=== PATIENT | female | born 1965 | race Caucasian/White ===

== ENCOUNTER 2023-12-29 21:00 | Inpatient (IN) | payer MEDICARE, SELFPAY ==
[2023-12-29 21:01] VITALS: BP 134/93; PULSE 107; RESP 19; TEMP 36; O2SAT 99
[2023-12-29 21:03] VITALS: BMI 34.7
[2023-12-29 22:07] LABS: Absolute Lymphocyte Count 2.38 X10^3/uL (0.83-4.51); Absolute Neutrophil Count 4.6 X10^3/uL (2.0-7.7); Basophil# 0.04 X10^3/uL; Basophil% 0.4 % (0-1); Eosinophil# 0.23 X10^3/uL; Eosinophils% 2.6 % (0-5); Hematocrit 45.2 % (37-47); Hemoglobin 15.8 g/dL (12.0-15.0); Lymphocyte # 2.38 X10^3/ul (0.83-4.51); Lymphocyte % 26.7 % (19-41); Mean Corpuscular Hgb 30.3 pg (27.0-32.0); Mean Corpuscular Volume 86.6 fL (81-99); Mean Platelet Vol. 10.9 fl (6.2-12.0); Monocyte# 1.62 X10^3/uL; Monocyte% 18.2 % (0-10); NRBC Flagged by Analyzer 0 % (0-5); Neutrophil # 4.59 X10^3/uL (2.7-7.7); Neutrophil % 51.4 % (47-70); POSITIVE DIFFERENTIAL YES; POSITIVE MORPHOLOGY YES; Platelet Count 286 K/mm3 (150-450); RBC Distribution Width CV 12.3 % (11.6-14.6); RBC Distribution Width SD 38.6 fl (35.1-43.9); Red Blood Count 5.22 M/mm3 (4.2-5.4); White Blood Count 8.9 K/mm3 (4.4-11.0)
[2023-12-29] MEDS: 0.9% Normal Saline (1000mL) 1,000 ML 999 ML IV (22:22)
[2023-12-29] MEDS: Ondansetron 4 MG/2 ML Vial IV (22:22)
[2023-12-29 22:28] LABS: Magnesium 1.5 mg/dL (1.6-2.6)
[2023-12-29 22:30] LABS: ALB/GLOB Ratio 0.9 RATIO (0.9-2.4); AST(SGOT) 11 U/L (15-37); Alanine Aminotransfer ALT/SGPT 17 U/L (13-56); Albumin, Serum 3.7 g/dL (3.2-5.0); Alkaline Phosphatase 87 U/L (45-117); Anion Gap 10 (5-15); BUN 10 mg/dL (7-18); BUN/Creat Ratio 8.3 RATIO (10-20); Calcium,Total 9.1 mg/dL (8.5-10.1); Chloride 101 mmol/L (98-107); Creatinine, Serum 1.21 mg/dL (0.55-1.02); EST Glomerular Filtration Rate 48 mL/min (>60); Est Glom Filt Rate - Afr Amer 58 mL/min (>60); Globulin 4.1 g/dL (2.2-4.2); Glucose 146 mg/dL (74-106); Lipase < 10 U/L (13-75); Potassium 2.3 mmol/L (3.5-5.1); Protein, Total 7.8 g/dL (6.4-8.2); Sodium Level 135 mmol/L (136-145)
[2023-12-29 22:31] LABS: Differential Indicated SCAN CRITERIA MET
--- NOTE | 2023-12-29 22:40 | EKG12_ITS ---
Test Reason : DYSRHYTHMIA Blood Pressure : / mmHG Vent. Rate : 095 BPM Atrial Rate : 095 BPM P-R Int : 152 ms QRS Dur : 078 ms QT Int : 428 ms P-R-T Axes : 051 -27 068 degrees QTc Int : 537 ms Normal sinus rhythm Nonspecific ST abnormality Prolonged QT Abnormal ECG Confirmed by Damon Pham ([id number]), society editor JOVI KIRKLAND ([id number]) on 12/30/2023 7:39:02 AM Referred By: Confirmed By:Damon Pham
[2023-12-29 22:51] LABS: Anisocytosis RARE; Atypical Lymphocyte 1+ %; Platelet Estimate ADEQUATE (ADEQ); Red Cell Morphology NORM C+C NORMAL (NORM C&C)
[2023-12-29 23:00] VITALS: BP 147/82; PULSE 92; RESP 21; O2SAT 96
[2023-12-29] MEDS: Potassium Chloride Oral Tablet 20 MEQ 40 MEQ PO (23:44)
[2023-12-29] MEDS: Magnesium Sulfate 2 GM in Dextrose 5%-Water (100mL Bag) 100 ML IV (23:45)
[2023-12-29] MEDS: Potassium Chloride 10mEq/100mL 10 MEQ/100 ML IV.SOLN. 100 MEQ IV BOLUS (23:49)
--- NOTE | 2023-12-29 23:52 | EX.ED.DYSGE1 ---
HPI History of Present Illness Chief Complaint: Nausea/Vomiting/Diarrhea Informant: patient and family Narrative Narrative: Patient is a 58-year-old female with past medical history of hypothyroidism and lupus who is on Plaquenil. She states that she has been under a great deal of stress recently as her had cancer and recently passed. She states that over the past 3 to 4 weeks she has been having difficulty keeping any food or fluid or medication down and is also been having recurrent bouts of diarrhea. She describes the diarrhea as watery but denies any recent travel antibiotic use exposure to livestock or camping. She also denies any history of intestinal disorders such as ulcerative colitis Crohn's disease or IBS. She states that she is just been feeling rundown tired and fatigued and has symptoms or not resolving she presents for evaluation [facility] Medical History (Updated 12/30/23 @ 01:[address] Mery Etienne DO) History of retinal detachment Lupus Rheumatoid arthritis Depression Anxiety Hypothyroidism Chronic pain Kidney stones GERD (gastroesophageal reflux disease) Heart murmur Home Medications ?Medication ?Instructions ?Recorded ?Last Taken ?Type celecoxib 200 mg capsule 200 mg PO Q24H 12/29/23 12/22/23 History hydroxychloroquine 200 mg tablet 200 mg PO BID 12/29/23 Unknown History levothyroxine 150 mcg tablet 150 mcg PO DAILY thyroid 12/29/23 Unknown History lorazepam 1 mg tablet 2 mg PO QHS PRN sleep 12/29/23 Unknown History cyanocobalamin (vitamin B-12) 1,000 mcg IM QWEEK 12/30/23 Unknown History 1,000 mcg/mL injection solution dextroamphetamine-amphetamine 20 2 tab PO DAILY 12/30/23 12/15/23 History mg tablet duloxetine 30 mg capsule,delayed 30 mg PO DAILY 12/30/23 Unknown History release duloxetine 60 mg capsule,delayed 60 mg PO DAILY 12/30/23 Unknown History release gabapentin 300 mg capsule 300 mg PO QHS nerve pain 12/30/23 Unknown History omeprazole 40 mg capsule,delayed 40 mg PO DAILY gerd 12/30/23 Unknown History release Allergy/AdvReac Type Severity Reaction Status Date / Time Sulfa (Sulfonamide AdvReac Mild NEEDS Verified 12/29/23 21:03 Antibiotics) (sulfa drugs) FOLLOW-UP Family History (Updated 12/30/23 @ 01:[address] Mery Etienne DO) Other CVA (cerebral vascular accident) Cancer Hypertension Thyroid disorder Surgical History (Updated 12/30/23 @ 01:[address] Mery Etienne DO) H/O vascular surgery H/O foot surgery H/O: hysterectomy History of facelift History of carpal tunnel surgery History of gastric bypass Social History (Updated 12/30/23 @ 01:[address] Mery Etienne DO) household members: none housing: house Smoking Status: Never smoker alcohol intake: never substance use type: does not use additional social history: about 1 week ago ROS ROS ED Constitutional Constitutional ED: Denies chills or fever(s) ENT ENT ED: Denies sore throat Cardiovascular Cardiovascular: Denies chest pain Respiratory/Chest Respiratory/Chest: Denies cough or dyspnea Gastrointestinal Gastrointestinal: Reports diarrhea, nausea and vomiting; Denies abdominal pain Genitourinary Genitourinary ED: Denies dysuria Musculoskeletal Musculoskeletal: Denies myalgias Integumentary Denies rash Neurologic Neurologic: Reports weakness; Denies headache(s) or paresthesias Psychiatric Psychiatric: Reports depression Hematologic/Lymphatic Hematologic/Lymphatic: Denies easy bleeding or easy bruising EXAM Physical Exam Const Vital Signs: 12/29/23 21:01 12/29/23 23:00 Temperature 96.8 F L Temperature Source Temporal Pulse Rate 107 H 92 Respiratory Rate 19 H 21 H Blood Pressure 134/93 H 147/82 H Blood Pressure Mean 106 103 Pulse Ox 99 96 Oxygen Delivery Method Room Air Room Air Positive well nourished and well developed General Appearance ED: well developed; Negative for pallor HEENT Reports dry mucous membranes HEENT Narrative: Mucous membranes are dry and tacky No tongue or lip swelling no oral lesions no airway edema or compromise No secondary findings in the posterior pharynx to suggest infection Mouth ED: Yes dry mucous membranes Mouth: dry mucous membranes Eyes PERRL and EOMs intact bilaterally General Eye ED: Negative for scleral icterus Neck supple Resp normal respiratory effort and clear to auscultation bilaterally Cardio regular rhythm Rate: tachycardic and other Other Details: Slightly tachycardic rate with regular rhythm Radial and carotid pulses are equal and symmetric GI non-distended and no masses GI Narrative: Abdomen is soft and nondistended with normal active bowel sounds. There is mild diffuse pain with palpation without voluntary guarding or rigidity or pulsatile mass Auscultation: normoactive bowel sounds Palpation: soft Extremity normal to inspection Neuro oriented x3, CN's II-XII intact bilaterally and no sensory deficits noted Sensorium / Orientation: alert Motor Exam: strength 5/5 throughout Psych Psych Narrative: Patient has a depressed/flat affect Skin no rashes or lesions noted and No skin turgor normal Skin Narrative: Skin turgor is increased General Skin Exam: Negative for jaundice or pallor MDM MDM MDM Narrative Medical decision making narrative: Patient arrived to the ER afebrile but was slightly hypertensive and tachycardic. She reported 3 to 4 weeks of recurrent symptoms and denied any known sick contacts or concern for infectious diarrhea such as Salmonella E. coli or C. difficile. However she is immunosuppressed and there is concern for this and based on the prolonged nature of symptoms a stool sample was ordered. There is concern that her symptoms are stress/anxiety driven with her recent loss of her . However because of her physical exam showing dehydration and the prolonged nature of her symptoms there is concern for acute kidney injury as well versus electrolyte abnormalities such as hypomagnesemia or hypokalemia. There is only mild pain on palpation and without fever or localized area of pain and did not feel the need for a CT. moreover patient reports that roughly 4 to 5 months ago she had a colonoscopy at an outpatient facility that was reportedly normal. IV hydration was started secondary to the dehydration findings on exam and lab work did show acute hypokalemia at 2.3. Magnesium was also slightly low. Therefore at this time with dehydration persistent diarrhea and severe hypokalemia patient will be kept in the hospital for IV hydration and electrolyte replacement History & Record Review Discussion w/independent historian: Patient and Family Lab Data Attestation: I reviewed the patient's lab results. Labs: Laboratory Results - last 24 hr 12/29/23 21:59 WBC 8.9 RBC 5.22 Hgb 15.8 H Hct 45.2 MCV 86.6 MCH 30.3 MCHC 35.0 RDW Std Deviation 38.6 RDW Coeff of Keaton 12.3 Plt Count 286 MPV 10.9 Immature Gran % (Auto) 0.700 Neut % (Auto) 51.4 Lymph % (Auto) 26.7 [place] % (Auto) 18.2 H Eos % (Auto) 2.6 Baso % (Auto) 0.4 Absolute Neuts (auto) 4.6 Absolute Lymphs (auto) 2.38 Nucleated RBC % 0 Differential Comment SEE COMMENT Atypical Lymphocytes 1+ Platelet Estimate ADEQUATE RBC Morphology NORM C+C Anisocytosis RARE Sodium 135 L Potassium 2.3 L* Chloride 101 Carbon Dioxide 24.0 Anion Gap 10 BUN 10 Creatinine 1.21 H Est GFR (MDRD) Af Amer 58 L Est GFR (MDRD) Non-Af 48 L BUN/Creatinine Ratio 8.3 L Glucose 146 H Hemoglobin A1c 5.5 Calcium 9.1 Magnesium 1.5 L Total Bilirubin 0.60 AST 11 L ALT 17 Alkaline Phosphatase 87 Total Protein 7.8 Albumin 3.7 Globulin 4.1 Albumin/Globulin Ratio 0.9 Lipase < 10 L TSH 4.580 H Management Discussion w/another healthcare provider: Hospitalist Discharge Plan Dx/Rx/DC Orders Clinical Impression: Acute hypokalemia, Hypomagnesemia, Dehydration, Nausea vomiting and diarrhea Disposition Disposition: [facility] Discharge Date/Time: 12/30/23 00:24
--- NOTE | 2023-12-29 23:54 | PCM.HP.STD ---
HPI - General General Date of Admission: 12/29/23 Date of Service: 12/29/23 Chief Complaint: Nausea/Diarrhea/Weakness HPI Narrative JEANIE MOHAMUD, is a 58 F who presented to the emergency department at [facility] on 12/29/2023 due to nausea and diarrhea that has been persistent for about 1 month with some associated weakness lately. About a week ago her . He was evidently diagnosed with cancer and declined very quickly. Patient reports she enrolled in hospice and he the next day. She has been under significant amount of stress in the last several weeks due to being the primary caregiver for her and recently moving back to [place] from [place] where she recently lives. She is from here and has multiple siblings and support in the area. She states about a month ago she started having some intermittent nausea that has progressed to more consistent nausea with intermittent vomiting and dry heaves. She does not have vomiting on a daily basis and it comes and goes. She also has having some associated diarrhea. She states she does have diarrhea on a regular basis and has found that if she decreases her p.o. intake her diarrhea output decreases. She was having some diarrhea at night with accidents initially but this has resolved and she no longer is having any diarrhea that wakes her up in the middle the night. She had a colonoscopy in July that was unremarkable. She had a remote EGD that showed a hiatal hernia. She denies any hematemesis, hematochezia, or melena. She is intermittently able to keep food and liquid down but overall there is been significant mount of Stealth neglect doing the care she has been giving to her . Vital signs on presentation showed a temperature of 96.8, heart rate 107, respiratory rate 19, blood pressure is 134/93 and oxygen saturation was 99% on room air. CBC shows erythrocytosis but is otherwise unremarkable. Chemistry panel shows mild hyponatremia with a sodium of 135, potassium of 2.3 and a serum creatinine of 1.21. Glucose was 146, magnesium was 1.5, liver functions were unremarkable. Lipase was less than 10, TSH was 4.58. EKG was unremarkable other than a long QTc likely related to her electrolyte abnormalities. Of note the patient has 2 medical record numbers with her other 1 being more detailed. Medical record number is [id number]. [facility] Medical History (Updated 12/30/23 @ 01:[address] Mery Etienne DO) History of retinal detachment Lupus Rheumatoid arthritis Depression Anxiety Hypothyroidism Chronic pain Kidney stones GERD (gastroesophageal reflux disease) Heart murmur Home Medications ?Medication ?Instructions ?Recorded ?Last Taken ?Type celecoxib 200 mg capsule 200 mg PO Q24H 12/29/23 12/22/23 History hydroxychloroquine 200 mg tablet 200 mg PO BID 12/29/23 Unknown History levothyroxine 150 mcg tablet 150 mcg PO DAILY thyroid 12/29/23 Unknown History lorazepam 1 mg tablet 2 mg PO QHS PRN sleep 12/29/23 Unknown History cyanocobalamin (vitamin B-12) 1,000 mcg IM QWEEK 12/30/23 Unknown History 1,000 mcg/mL injection solution dextroamphetamine-amphetamine 20 2 tab PO DAILY 12/30/23 12/15/23 History mg tablet duloxetine 30 mg capsule,delayed 30 mg PO DAILY 12/30/23 Unknown History release duloxetine 60 mg capsule,delayed 60 mg PO DAILY 12/30/23 Unknown History release gabapentin 300 mg capsule 300 mg PO QHS nerve pain 12/30/23 Unknown History omeprazole 40 mg capsule,delayed 40 mg PO DAILY gerd 12/30/23 Unknown History release Allergy/AdvReac Type Severity Reaction Status Date / Time Sulfa (Sulfonamide AdvReac Mild NEEDS Verified 12/29/23 21:03 Antibiotics) (sulfa drugs) FOLLOW-UP Family History (Updated 12/30/23 @ 01:[address] Mery Etienne DO) Other CVA (cerebral vascular accident) Cancer Hypertension Thyroid disorder Surgical History (Updated 12/30/23 @ 01:[address] Mery Etienen DO) H/O vascular surgery H/O foot surgery H/O: hysterectomy History of facelift History of carpal tunnel surgery History of gastric bypass Social History (Updated 12/30/23 @ 01:[address] Mery Etienne DO) household members: none housing: house Smoking Status: Never smoker alcohol intake: never substance use type: does not use additional social history: about 1 week ago ROS Constitutional Constitutional: Reports anorexia, fatigue and weakness; Denies change in weight, chills, fever(s), malaise, night sweats or other Eyes Eyes: Denies blurry vision, change in eye color, change in vision, discharge from eye(s), double vision, erythema, eye pain, loss of vision or other ENT HEENT: Denies abnormal hearing, dysphagia, ear pain, epistaxis, headache(s), hearing loss, nasal congestion, nasal discharge, post nasal drip, sinus pressure, sore throat or other Cardiovascular Cardiovascular: Denies chest pain, claudication, dyspnea on exertion, edema, lightheadedness, orthopnea, palpitations, paroxysmal nocturnal dyspnea, rapid heart rate, syncope or other Respiratory/Chest Respiratory/Chest: Denies cough, dyspnea, excessive phlegm production, hemoptysis, productive cough, shortness of breath at rest, shortness of breath with exertion, wheezing or other Gastrointestinal Gastrointestinal: Reports diarrhea, nausea and vomiting; Denies abdominal pain, coffee ground emesis, constipation, dyspepsia, hematemesis, hematochezia, loose stools, melena or other Genitourinary Genitourinary: Denies burning urination, difficulty urinating, dysuria, hematuria, nocturia, urinary frequency, urinary hesitancy, urinary incontinence, urinary urgency or other Musculoskeletal Musculoskeletal: Denies arthralgias, back pain, joint pain, joint stiffness, joint swelling, myalgias, neck pain or other Neurologic Neurologic: Denies abnormal gait, abnormal speech, confusion, disequilibrium, dizziness, focal weakness, headache(s), numbness, paresthesias, seizure-like activity, seizures, syncope, tingling, tremor(s) or other Psychiatric Psychiatric: Denies anxiety, depression, homicidal ideation, suicidal ideation or other Endocrine Endocrinology: Denies change in body appearance, cold intolerance, excessive sweating, heat intolerance, polydipsia, polyuria or other Hematologic/Lymphatic Hematologic/Lymphatic: Denies anemia, easy bleeding, easy bruising, lymphadenopathy or other Allergic/Immunologic Allergic/Immunologic: Denies rhinitis, hives, eczemia, asthma or other Vital Signs Vital Signs Vital Signs: 12/29/23 21:01 12/29/23 23:00 Temperature 96.8 F L Temperature Source Temporal Pulse Rate 107 H 92 Respiratory Rate 19 H 21 H Blood Pressure 134/93 H 147/82 H Blood Pressure Mean 106 103 Pulse Ox 99 96 Oxygen Delivery Method Room Air Room Air Weight Weight: 94.6 kg Body Mass Index (BMI) 34.7 Physical Exam Const alert, oriented x3, no apparent distress and well nourished; Negative for average body habitus or healthy appearing Constitutional Narrative: Obese, middle-aged, white female, sitting up in bed, appears comfortable, nontoxic General Appearance: cooperative HEENT normocephalic, head/scalp atraumatic and hearing grossly normal bilaterally HEENT Narrative: Mallampati is 3, no thrush, mucous membranes are slightly dry Eyes PERRL, EOMs intact bilaterally and conjunctivae normal Eyes Narrative: No scleral icterus Neck no lymphadenopathy and supple Neck Narrative: Trachea midline, no thyroid enlargement Resp normal respiratory effort, no retractions, no use of accessory muscles and clear to auscultation bilaterally Auscultation: Negative for rales, rhonchi or wheezes Cardio regular rhythm, S1 normal heart sound, S2 normal heart sound, no murmurs, no rub, no gallops and no clicks Cardio Narrative: Mild tachycardia GI normal to inspection, nondistended, normoactive bowel sounds, soft to palpation and non-tender Extremity no clubbing, cyanosis or edema Extremity Narrative: Pedal pulses and radial pulses are 2+ Skin no rashes or lesions noted, no wounds, skin turgor normal, no jaundice, no petechiae and no mottling Neuro oriented x3, CN's II-XII intact bilaterally, moves all extremities and no focal motor deficits Speech: speech normal Psych Psych Narrative: Affect is flat mood is depressed Results Lab / Micro Data 12/29/23 21:59 12/29/23 21:59 Labs: Laboratory Results - last 24 hr 12/29/23 21:59: WBC 8.9, RBC 5.22, Hgb 15.8 H, Hct 45.2, MCV 86.6, MCH 30.3, MCHC 35.0, RDW Std Deviation 38.6, RDW Coeff of Keaton 12.3, Plt Count 286, MPV 10.9, Immature Gran % (Auto) 0.700, Neut % (Auto) 51.4, Lymph % (Auto) 26.7, [place] % (Auto) 18.2 H, Eos % (Auto) 2.6, Baso % (Auto) 0.4, Absolute Neuts (auto) 4.6, Absolute Lymphs (auto) 2.38, Nucleated RBC % 0, Differential Comment SEE COMMENT, Atypical Lymphocytes 1+, Platelet Estimate ADEQUATE, RBC Morphology NORM C+C, Anisocytosis RARE, Sodium 135 L, Potassium 2.3 L*, Chloride 101, Carbon Dioxide 24.0, Anion Gap 10, BUN 10, Creatinine 1.21 H, Est GFR (MDRD) Af Amer 58 L, Est GFR (MDRD) Non-Af 48 L, BUN/Creatinine Ratio 8.3 L, Glucose 146 H, Calcium 9.1, Magnesium 1.5 L, Total Bilirubin 0.60, AST 11 L, ALT 17, Alkaline Phosphatase 87, Total Protein 7.8, Albumin 3.7, Globulin 4.1, Albumin/Globulin Ratio 0.9, Lipase < 10 L Assessment & Plan Assessment/Plan (1) Nausea: (2) Diarrhea: (3) Hypokalemia: (4) Hypomagnesemia: (5) Elevated serum creatinine: (6) Erythrocytosis: (7) Hyponatremia: (8) Hyperglycemia: PLAN: Plan Nausea/vomiting/diarrhea -Concerned that this may be related to anxiety and depression from her 's recent illness and subsequent however need to rule out organic causes -Check C. difficile and enteric panel -As needed antiemetics -Consider Imodium if stool studies are unremarkable -Start Bentyl -Protonix IV twice daily -Check TSH -Consult GI for assistance with management -Patient reports she had a colonoscopy done in July that was unremarkable has had previous EGD but not recently Hypokalemia -Quite profound on presentation -Replaced with IV and oral -Recheck in a.m. -Magnesium is being replaced as well Hypomagnesemia -2 g given -Repeat in a.m. Elevated serum creatinine -Baseline unclear -Serum creatinine presentation was 1.21 however I do suspect she is dehydrated based on erythrocytosis of presentation -IV fluids -Trend Erythrocytosis -Highly suspect hemoconcentration -Repeat CBC in a.m. History of lupus/RA -Continue home Plaquenil -Has not had any lupus flare since diagnosed about 30 years ago and symptoms at that time were cutaneous and myalgias predominantly -Currently following with Dr. Gerber History of gastric bypass surgery -Done in 1995 -Patient has been asymptomatic and had no issues since performed -Reports it was a Gino-en-Y GERD/hiatal hernia -Hold home oral PPI and start IV PPI twice daily to see if this helps her symptoms ADHD -Hold home dextromethorphan/amphetamine and restart at discharge Depression/anxiety -Patient follows as an outpatient with psychiatry -Continue home lorazepam -Continue home duloxetine -Recommend close follow-up after discharge due to recent events Obesity -BMI 33.6 -Complicates treatment, prognosis, outcomes DVT prophylaxis -Subcu Lovenox twice daily CODE STATUS -Full code as verified at the time of admission Charges/Coding Visit Charges Inpatient E&M: 26462 Init Hosp L3
[2023-12-30 00:05] VITALS: BP 130/83; PULSE 95; RESP 16; TEMP 36.3; O2SAT 96
[2023-12-30] MEDS: 0.9% Normal Saline (1000mL) 1,000 ML 100 ML IV ×3 (00:40→19:01)
[2023-12-30 00:46] LABS: Hemoglobin A1c 5.5 % (3.8-5.6)
[2023-12-30] MEDS: Potassium Chloride 10mEq/100mL 10 MEQ/100 ML IV.SOLN. 100 MEQ IV BOLUS ×7 (01:00→12:59)
[2023-12-30 01:34] VITALS: BMI 33.5
[2023-12-30 01:39] VITALS: BP 128/67; PULSE 88; RESP 18; TEMP 37; O2SAT 96
[2023-12-30] MEDS: LORazepam 1 MG Tablet 2 MG PO ×2 (02:06→21:28)
[2023-12-30 05:37] VITALS: BMI 33.0
[2023-12-30 05:54] VITALS: BMI 33.0
[2023-12-30] MEDS: Dicyclomine 10 MG Capsule PO ×3 (06:20→17:10)
[2023-12-30] MEDS: Levothyroxine 150 MCG Tablet PO (06:20)
[2023-12-30 06:22] VITALS: BP 138/85; PULSE 87; RESP 18; TEMP 36.5; O2SAT 97
[2023-12-30 07:14] LABS: Absolute Neutrophil Count 4.9 X10^3/uL (2.0-7.7); Basophil# 0.02 X10^3/uL; Basophil% 0.2 % (0-1); Eosinophil# 0.23 X10^3/uL; Eosinophils% 2.5 % (0-5); Hematocrit 42.1 % (37-47); Hemoglobin 14.8 g/dL (12.0-15.0); Mean Corp Hgb Conc 35.2 g/dL (32-36); Mean Corpuscular Hgb 30.8 pg (27.0-32.0); Mean Corpuscular Volume 87.5 fL (81-99); Mean Platelet Vol. 11.2 fl (6.2-12.0); Monocyte# 1.35 X10^3/uL; Monocyte% 14.5 % (0-10); NRBC Flagged by Analyzer 0 % (0-5); Neutrophil # 4.86 X10^3/uL (2.7-7.7); POSITIVE MORPHOLOGY YES; Platelet Count 279 K/mm3 (150-450); RBC Distribution Width CV 12.6 % (11.6-14.6); RBC Distribution Width SD 40.4 fl (35.1-43.9); Red Blood Count 4.81 M/mm3 (4.2-5.4); White Blood Count 9.3 K/mm3 (4.4-11.0)
[2023-12-30 08:05] LABS: Anion Gap 7 (5-15); BUN 9 mg/dL (7-18); BUN/Creat Ratio 8.1 RATIO (10-20); Calcium,Total 8.7 mg/dL (8.5-10.1); Chloride 109 mmol/L (98-107); Creatinine, Serum 1.11 mg/dL (0.55-1.02); EST Glomerular Filtration Rate 53 mL/min (>60); Est Glom Filt Rate - Afr Amer 65 mL/min (>60); Glucose 131 mg/dL (74-106); Magnesium 2.4 mg/dL (1.6-2.6); Potassium 2.6 mmol/L (3.5-5.1); Sodium Level 140 mmol/L (136-145)
[2023-12-30 08:24] LABS: Phosphorus 3.9 mg/dL (2.5-4.9)
[2023-12-30 09:35] VITALS: BP 115/89; PULSE 77; RESP 18; TEMP 36.6; O2SAT 94
[2023-12-30] MEDS: 0.9% Saline Lock 10 ML Syringe IV (09:43)
[2023-12-30] MEDS: Enoxaparin 40 MG/0.4 ML Syringe SC (09:44)
[2023-12-30] MEDS: DULoxetine Hcl 60 MG Capsule PO (09:44)
[2023-12-30] MEDS: Ondansetron 4 MG/2 ML Vial IV ×2 (09:44→19:03)
[2023-12-30] MEDS: DULoxetine Hcl 30 MG Capsule PO (09:45)
[2023-12-30] MEDS: Loperamide (Oral Liquid) 1 MG/7.5 ML ML 2 MG PO (09:45)
[2023-12-30] MEDS: Hydroxychloroquine 200 MG Tablet PO ×2 (09:45→21:29)
--- NOTE | 2023-12-30 11:04 | CASEMGMT ---
TERESA ULLOA Assessment Face to Face with patient for initial transition planning/care coordination assessment. TERESA ULLOA introduced self and role at [facility], pt voices understanding. Pt is A&Ox4 and is resting comfortably in bed and is calm. Care providers, pharmacy, and demographics verified. 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 Prescription Benefit: Yes LNOK: Larry Hartman (Brother), Mary Bailey (Sister) Living Arrangements: Pt states that her recently . Pt now lives alone in a two story home with a FFSU and 3 small steps to enter ADLs/IADLs: Ind Transportation: Self, Brother/Family. Denies concerns DME: BP Monitor. Denies all other DME uses or needs HHC/SNF: Denies Hx or needs Pt?s goal: Home Plan: Home no needs. Pt denies the need for HHC, OP Tx, CCN/ Pt link. Pt states that she feels safe returning home once medically ready and denies further questions or concerns. Monalisa Chapman RN, CM
[2023-12-30] MEDS: Pantoprazole Sodium 40 MG Tablet PO (11:57)
[2023-12-30 15:35] VITALS: BP 136/96; PULSE 52; RESP 18; TEMP 36.6; O2SAT 92
--- NOTE | 2023-12-30 16:46 | CHAPLAIN ---
Type of Pastoral Visit _x__ Initial Visit ___ Follow-up Visit ___ On-call Visit ___ General Patient Visit ___ Spiritual Assessment ___ Family Conference ___ Bereavement ___ Rapid Response ___ Code Blue ___ Other (describe below) Pastoral Care Referral From _x__ Patient ___ Family ___ Nurse ___ Physician ___ Rehab Nurse ___ Manager Personal ___ Other (describe below) Sacrament/Intervention _x__ Active listening ___ Anointing ___ Alevism _x__ Bereavement ___ Communion ___ Carin exploration ___ _x__ Life review _x__ Prayer ___ Reconciliation ___ Sacrament of Sick _x__ Supportive presence ___ Wedding ___ Other (describe below) Pastoral Comments patient acknowledges that she is not improving from the stomach issues and food just going through me; pt admits that she has been caring for my dying instead of myself and my last week; discussion about grief and her particular loss and change of life now; much supportive listening and affirming given to her; pt identifies as a Yarsani but not having a mu-ism family due to moving back to [place] and dealing with a with cancer; pt says that she has siblings and good neighbors for support at this time; pt asks for prayer support
[2023-12-30] MEDS: Ensure Plus High Protein 120 ML LIQUID PO (17:10)
--- NOTE | 2023-12-30 19:09 | PN.HOSP_ITS ---
Reason for Visit Reason for Visit: Diagnoses Secondary polycythemia (12/29/23) Hypomagnesemia (12/29/23) Hypo-osmolality and hyponatremia (12/29/23) Hypokalemia (12/29/23) Nausea (12/29/23) Diarrhea, unspecified (12/29/23) Hyperglycemia, unspecified (12/29/23) Other specified abnormal findings of blood chemistry (12/29/23) Subjective Subjective Patient was seen and examined today, she states she is still having diarrhea but she is not having any nausea or vomiting. Patient's potassium was low today and I gave her IV potassium supplementation, BMP will be repeated tonight and tomorrow. Objective Data Objective Data Vital Signs: Vital Signs Temp Pulse Resp BP Pulse Ox O2 Del Method 97.8 F 52 L 18 136/96 H 92 Room Air 12/30/23 15:35 12/30/23 15:35 12/30/23 15:35 12/30/23 15:35 12/30/23 15:35 12/30/23 15:35 Oxygen Delivery Method Room Air Weight: 90.083 kg Body Mass Index (BMI) 33.0 Intake & Output: Intake and Output for Last 24 Hours 12/28/23 12/29/23 12/30/23 23:59 23:59 23:59 Intake Total 1000 / 1000 3889 / 3889 Balance 1000 / 1000 3889 / 3889 Medical Nutrition Assessment Dietitian: Malnutrition Criteria Met Start: 12/30/23 15:28 Freq: Status: Active Protocol: Document 12/30/23 15:28 SB (Rec: 12/30/23 15:28 SB [id number]) Nutrition Malnutrition Evidence of Malnutrition Exists Yes Malnutrition (severe): Acute Illness/Injury Evidenced By Suboptimal Energy Intake ( Severe),Weight Loss (Severe) Clinical Problem Acute Disease or Injury Related Malnutrition Etiology severe related to inadequate oral intake Signs/Symptoms as evidence by PO <50% of estimated nutrition needs x 3 weeks and 12% weight loss x 2- 3 months, per pt report. Status Active Problem Recommendation Dietitian Recommendations/Changes Continue regular diet. Will order 120ml strawberry ensure plus high protein 4x with medpass. Will monitor weight, as available. Recommend appetite simulant, to help encourage PO intake. Reviewed and approved by Leila Mendez, ISMAEL, LD. Lab / Micro Data 12/30/23 06:10 12/30/23 06:10 Labs: Laboratory Results - last 24 hr 12/29/23 21:59: WBC 8.9, RBC 5.22, Hgb 15.8 H, Hct 45.2, MCV 86.6, MCH 30.3, MCHC 35.0, RDW Std Deviation 38.6, RDW Coeff of Keaton 12.3, Plt Count 286, MPV 10.9, Immature Gran % (Auto) 0.700, Neut % (Auto) 51.4, Lymph % (Auto) 26.7, M stephany % (Auto) 18.2 H, Eos % (Auto) 2.6, Baso % (Auto) 0.4, Absolute Neuts (auto) 4.6, Absolute Lymphs (auto) 2.38, Nucleated RBC % 0, Differential Comment SEE COMMENT, Atypical Lymphocytes 1+, Platelet Estimate ADEQUATE, RBC Morphology NORM C+C, Anisocytosis RARE, Sodium 135 L, Potassium 2.3 L*, Chloride 101, Carbon Dioxide 24.0, Anion Gap 10, BUN 10, Creatinine 1.21 H, Est GFR (MDRD) Af Amer 58 L, Est GFR (MDRD) Non-Af 48 L, BUN/Creatinine Ratio 8.3 L, Glucose 146 H , Hemoglobin A1c 5.5, Calcium 9.1, Magnesium 1.5 L, Total Bilirubin 0.60, AST 11 L, ALT 17, Alkaline Phosphatase 87, Total Protein 7.8, Albumin 3.7, Globulin 4.1, Albumin/Globulin Ratio 0.9, Lipase < 10 L, TSH 4.580 H 12/30/23 06:10: WBC 9.3, RBC 4.81, Hgb 14.8, Hct 42.1, MCV 87.5, MCH 30.8, MCHC 35.2, RDW Std Deviation 40.4, RDW Coeff of [place] 12.6, Plt Count 279, MPV 11.2, Immature Gran % (Auto) 0.800, Neut % (Auto) 52.0, Lymph % (Auto) 30.0, [place] % (Auto) 14.5 H, Eos % (Auto) 2.5, Baso % (Auto) 0.2, Absolute Neuts (auto) 4.9, Absolute Lymphs (auto) 2.80, Nucleated RBC % 0, Differential Comment , Sodium 140, Potassium 2.6 L*, Chloride 109 H, Carbon Dioxide 24.0, Anion Gap 7, BUN 9, Creatinine 1.11 H, Estim Creat Clear Calc 60.50, Est GFR (MDRD) Af Amer 65, Est GFR (MDRD) Non-Af 53 L, BUN/Creatinine Ratio 8.1 L, Glucose 131 H, Calcium 8.7, Phosphorus 3.9, Magnesium 2.4 Micro: Microbiology 12/29/23 23:25 Stool Enteric Bacteriology - Final 12/29/23 23:25 Stool Clostridioides difficile (PCR) - Final Physical Exam Const alert, oriented x3, no apparent distress and healthy appearing General Appearance: cooperative, well kempt and well developed Orientation / Consciousness: awake, oriented to person, oriented to place and oriented to time HEENT normocephalic and moist oral mucous membranes Eyes PERRL, EOMs intact bilaterally and conjunctivae normal Neck supple, no JVD, thyroid normal and no carotid bruits General: trachea midline Resp normal respiratory effort, no retractions, no use of accessory muscles and clear to auscultation bilaterally Auscultation: Negative for rales, rhonchi or wheezes Cardio regular rate, regular rhythm, S1 normal heart sound, S2 normal heart sound, no murmurs, no rub and no gallops GI normal to inspection, nondistended, normoactive bowel sounds, soft to palpation, non-tender and non-distended Extremity no clubbing, cyanosis or edema Skin no rashes or lesions noted General Skin Exam: no breakdown Neuro oriented x3, CN's II-XII intact bilaterally, moves all extremities, no focal motor deficits and no sensory deficits noted Sensorium / Orientation: awake and alert Speech: speech normal Psych affect normal Assessment & Plan Assessment/Plan (1) Nausea vomiting and diarrhea: PLAN: Plan 1. Gastroenteritis-most probably viral in nature, continue supportive therapy including fluids, antiemetics. #2 hypokalemia secondary to #1-patient was given potassium supplementation today, labs will be monitored #3 chronic depression-patient is on Cymbalta #4 hypothyroidism-patient is on Synthroid #5 GERD-patient is on a PPI Total clinical time spent by myself addressing the patient's medical issues, reviewing all of her data, and collaborating with patient's care team: 35 minutes Charges/Coding Visit Charges Inpatient E&M: 12396 Subs Hosp L2
--- NOTE | 2023-12-30 19:14 | CON.PCM.GI_ITS ---
HPI Consult Data Date of Consult: 12/30/23 HPI Narrative Reason for Consultation: Nausea vomiting and diarrhea HPI Narrative: JEANIE MOHAMUD, is a 58 F who presented to the emergency department at [facility] on 12/29/2023 due to nausea and diarrhea that has been persistent for about 1 month with some associated weakness lately. About a week ago her . He was evidently diagnosed with cancer and declined very quickly. Patient reports she enrolled in hospice and he the next day. She has been under significant amount of stress in the last several weeks due to being the primary caregiver for her and recently moving back to [place] from [place] where she recently lives. She states about a month ago she started having some intermittent nausea that has progressed to more consistent nausea with intermittent vomiting and dry heaves. She does not have vomiting on a daily basis and it comes and goes. She also has having some associated diarrhea. She states she does have diarrhea on a regular basis and has found that if she decreases her p.o. intake her diarrhea output decreases. She was having some diarrhea at night with accidents initially but this has resolved and she no longer is having any diarrhea that wakes her up in the middle the night. She had a colonoscopy in July that was unremarkable. She had a remote EGD that showed a hiatal hernia. She denies any hematemesis, hematochezia, or melena. She is intermittently able to keep food and liquid down but overall there is been significant mount of [place] neglect doing the care she has been giving to her . She seems very depressed. [facility] Medical History (Updated 12/30/23 @ 01:[address] Mery Etienne, DO) History of retinal detachment Lupus Rheumatoid arthritis Depression Anxiety Hypothyroidism Chronic pain Kidney stones GERD (gastroesophageal reflux disease) Heart murmur Home Medications ?Medication ?Instructions ?Recorded ?Last Taken ?Type celecoxib 200 mg capsule 200 mg PO Q24H 12/29/23 12/22/23 History hydroxychloroquine 200 mg tablet 200 mg PO BID 12/29/23 Unknown History levothyroxine 150 mcg tablet 150 mcg PO DAILY thyroid 12/29/23 Unknown History lorazepam 1 mg tablet 2 mg PO QHS PRN sleep 12/29/23 Unknown History cyanocobalamin (vitamin B-12) 1,000 mcg IM QWEEK 12/30/23 Unknown History 1,000 mcg/mL injection solution dextroamphetamine-amphetamine 20 2 tab PO DAILY 12/30/23 12/15/23 History mg tablet duloxetine 30 mg capsule,delayed 30 mg PO DAILY 12/30/23 Unknown History release duloxetine 60 mg capsule,delayed 60 mg PO DAILY 12/30/23 Unknown History release gabapentin 300 mg capsule 300 mg PO QHS nerve pain 12/30/23 Unknown History omeprazole 40 mg capsule,delayed 40 mg PO DAILY gerd 12/30/23 Unknown History release Allergy/AdvReac Type Severity Reaction Status Date / Time Sulfa (Sulfonamide AdvReac Mild NEEDS Verified 12/29/23 21:03 Antibiotics) (sulfa drugs) FOLLOW-UP Family History (Updated 12/30/23 @ 01:[address] Mery Etienne DO) Other CVA (cerebral vascular accident) Cancer Hypertension Thyroid disorder Surgical History (Updated 12/30/23 @ 01:[address] Mery Etienne DO) H/O vascular surgery H/O foot surgery H/O: hysterectomy History of facelift History of carpal tunnel surgery History of gastric bypass Social History (Updated 12/30/23 @ 01:[address] Mery Etienne DO) household members: none housing: house Smoking Status: Never smoker alcohol intake: never substance use type: does not use additional social history: about 1 week ago ROS Constitutional Constitutional: Reports anorexia, fatigue and weakness; Denies change in weight, chills, fever(s), malaise, night sweats or other Eyes Eyes: Denies blurry vision, change in eye color, change in vision, discharge from eye(s), double vision, erythema, eye pain, loss of vision or other ENT HEENT: Denies abnormal hearing, dysphagia, ear pain, epistaxis, headache(s), hearing loss, nasal congestion, nasal discharge, post nasal drip, sinus pressure, sore throat or other Cardiovascular Cardiovascular: Denies chest pain, claudication, dyspnea on exertion, edema, lightheadedness, orthopnea, palpitations, paroxysmal nocturnal dyspnea, rapid heart rate, syncope or other Respiratory/Chest Respiratory/Chest: Denies cough, dyspnea, excessive phlegm production, hemoptysis, productive cough, shortness of breath at rest, shortness of breath with exertion, wheezing or other Gastrointestinal Gastrointestinal: Reports diarrhea, nausea and vomiting; Denies abdominal pain, coffee ground emesis, constipation, dyspepsia, hematemesis, hematochezia, loose stools, melena or other Genitourinary Genitourinary: Denies burning urination, difficulty urinating, dysuria, hematuria, nocturia, urinary frequency, urinary hesitancy, urinary incontinence, urinary urgency or other Musculoskeletal Musculoskeletal: Denies arthralgias, back pain, joint pain, joint stiffness, joint swelling, myalgias, neck pain or other Neurologic Neurologic: Denies abnormal gait, abnormal speech, confusion, disequilibrium, dizziness, focal weakness, headache(s), numbness, paresthesias, seizure-like activity, seizures, syncope, tingling, tremor(s) or other Psychiatric Psychiatric: Denies anxiety, depression, homicidal ideation, suicidal ideation or other Endocrine Endocrinology: Denies change in body appearance, cold intolerance, excessive sweating, heat intolerance, polydipsia, polyuria or other Hematologic/Lymphatic Hematologic/Lymphatic: Denies anemia, easy bleeding, easy bruising, lymphadenopathy or other Allergic/Immunologic Allergic/Immunologic: Denies rhinitis, hives, eczemia, asthma or other Physical Exam Const alert, oriented x3, no apparent distress and healthy appearing General Appearance: cooperative, well kempt and well developed Orientation / Consciousness: awake, oriented to person, oriented to place and oriented to time HEENT normocephalic and moist oral mucous membranes Eyes PERRL, EOMs intact bilaterally and conjunctivae normal Neck supple, no JVD, thyroid normal and no carotid bruits General: trachea midline Resp normal respiratory effort, no retractions, no use of accessory muscles and clear to auscultation bilaterally Auscultation: Negative for rales, rhonchi or wheezes Cardio regular rate, regular rhythm, S1 normal heart sound, S2 normal heart sound, no murmurs, no rub and no gallops GI normal to inspection, nondistended, normoactive bowel sounds, soft to palpation, non-tender and non-distended Extremity no clubbing, cyanosis or edema Skin no rashes or lesions noted General Skin Exam: no breakdown Neuro oriented x3, CN's II-XII intact bilaterally, moves all extremities, no focal motor deficits and no sensory deficits noted Sensorium / Orientation: awake and alert Speech: speech normal Psych affect normal Medical Records Data Medical Nutrition Assessment Dietitian: Malnutrition Criteria Met Start: 12/30/23 15:28 Freq: Status: Active Protocol: Document 12/30/23 15:28 SB (Rec: 12/30/23 15:28 SB [id number]) Nutrition Malnutrition Evidence of Malnutrition Exists Yes Malnutrition (severe): Acute Illness/Injury Evidenced By Suboptimal Energy Intake ( Severe),Weight Loss (Severe) Clinical Problem Acute Disease or Injury Related Malnutrition Etiology severe related to inadequate oral intake Signs/Symptoms as evidence by PO <50% of estimated nutrition needs x 3 weeks and 12% weight loss x 2- 3 months, per pt report. Status Active Problem Recommendation Dietitian Recommendations/Changes Continue regular diet. Will order 120ml strawberry ensure plus high protein 4x with medpass. Will monitor weight, as available. Recommend appetite simulant, to help encourage PO intake. Reviewed and approved by Leila Mendez RD, LD. Lab / Micro Data 12/30/23 06:10 12/30/23 06:10 Labs: Laboratory Results - last 24 hr 12/29/23 21:59: WBC 8.9, RBC 5.22, Hgb 15.8 H, Hct 45.2, MCV 86.6, MCH 30.3, MCHC 35.0, RDW Std Deviation 38.6, RDW Coeff of Keaton 12.3, Plt Count 286, MPV 10.9, Immature Gran % (Auto) 0.700, Neut % (Auto) 51.4, Lymph % (Auto) 26.7, M stephany % (Auto) 18.2 H, Eos % (Auto) 2.6, Baso % (Auto) 0.4, Absolute Neuts (auto) 4.6, Absolute Lymphs (auto) 2.38, Nucleated RBC % 0, Differential Comment SEE COMMENT, Atypical Lymphocytes 1+, Platelet Estimate ADEQUATE, RBC Morphology NORM C+C, Anisocytosis RARE, Sodium 135 L, Potassium 2.3 L*, Chloride 101, Carbon Dioxide 24.0, Anion Gap 10, BUN 10, Creatinine 1.21 H, Est GFR (MDRD) Af Amer 58 L, Est GFR (MDRD) Non-Af 48 L, BUN/Creatinine Ratio 8.3 L, Glucose 146 H , Hemoglobin A1c 5.5, Calcium 9.1, Magnesium 1.5 L, Total Bilirubin 0.60, AST 11 L, ALT 17, Alkaline Phosphatase 87, Total Protein 7.8, Albumin 3.7, Globulin 4.1, Albumin/Globulin Ratio 0.9, Lipase < 10 L, TSH 4.580 H 12/30/23 06:10: WBC 9.3, RBC 4.81, Hgb 14.8, Hct 42.1, MCV 87.5, MCH 30.8, MCHC 35.2, RDW Std Deviation 40.4, RDW Coeff of Keaton 12.6, Plt Count 279, MPV 11.2, Immature Gran % (Auto) 0.800, Neut % (Auto) 52.0, Lymph % (Auto) 30.0, [place] % (Auto) 14.5 H, Eos % (Auto) 2.5, Baso % (Auto) 0.2, Absolute Neuts (auto) 4.9, Absolute Lymphs (auto) 2.80, Nucleated RBC % 0, Differential Comment , Sodium 140, Potassium 2.6 L*, Chloride 109 H, Carbon Dioxide 24.0, Anion Gap 7, BUN 9, Creatinine 1.11 H, Estim Creat Clear Calc 60.50, Est GFR (MDRD) Af Amer 65, Est GFR (MDRD) Non-Af 53 L, BUN/Creatinine Ratio 8.1 L, Glucose 131 H, Calcium 8.7, Phosphorus 3.9, Magnesium 2.4 Micro: Microbiology 12/29/23 23:25 Stool Enteric Bacteriology - Final 12/29/23 23:25 Stool Clostridioides difficile (PCR) - Final Assessment & Plan Assessment/Plan (1) Nausea: (2) Diarrhea: (3) Hypokalemia: (4) Hypomagnesemia: (5) Elevated serum creatinine: (6) Erythrocytosis: (7) Hyponatremia: (8) Hyperglycemia: PLAN: Plan 58-year-old with nausea/vomiting/diarrhea -Differential diagnosis does include viral gastroenteritis. Also does have diagnosis could be secondary to anxiety and depression from her 's recent illness and subsequent however need to rule out organic causes -C C. difficile and enteric panel is negative -Due to her extreme and continued hypokalemia think she would benefit from a CT scan abdomen pelvis and the ESR, CRP and lactate. As needed antiemetics -Agree with Protonix IV twice daily and Bentyl Charges/Coding Visit Charges Inpatient E&M: 87427 Subs Hosp L3
--- NOTE | 2023-12-30 19:15 | CT_ITS ---
EXAM: CT ABDOMEN AND PELVIS WITH INTRAVENOUS CONTRAST CLINICAL INDICATION: N/V TECHNIQUE: Helically acquired images were obtained of the abdomen and pelvis with intravenous contrast. This CT exam was performed using one or more of the following dose reduction techniques: automated exposure control, adjustment of the mA and/or kV according to patient size, and/or use of iterative reconstruction technique. CONTRAST: IV 100mL Isovue-370 RADIATION DOSE: CTDIvol = 17.82 mGy, DLP = 1201.10 mGy-cm COMPARISON: No relevant prior studies available. FINDINGS: LOWER THORAX: Unremarkable. Lung bases are clear. No cardiomegaly. No significant pericardial effusion. ABDOMEN: LIVER: Unremarkable. Homogeneous. No focal mass. GALLBLADDER AND BILE DUCTS: Unremarkable. No calcified gallstones. No gallbladder distention or wall edema. No intra- or extrahepatic biliary ductal dilation. PANCREAS: Unremarkable. No focal cystic or solid mass. SPLEEN: Unremarkable. Normal size without focal cystic or solid mass. ADRENALS: Unremarkable. No nodules. KIDNEYS AND URETERS: Unremarkable. Normal renal size and position. No hydronephrosis. STOMACH AND BOWEL: Evaluation of the GI tract is limited by absence of oral contrast. Cannot exclude stomach wall thickening. Previous gastric sleeve surgery. No dilated loops of small bowel. Cannot exclude segments of bowel wall thickening. Prominent distention of the entire large bowel with air and fecal material. Findings consistent with severe colonic ileus. Possible fecal impaction of the rectum. PELVIS: APPENDIX: No evidence of acute appendicitis. BLADDER: Unremarkable. REPRODUCTIVE: Absent uterus. ABDOMEN and PELVIS: INTRAPERITONEAL SPACE: Unremarkable. No ascites or other fluid collection. No free air. BONES/JOINTS: Unremarkable. No suspicious lytic or blastic abnormality. SOFT TISSUES: Unremarkable. No discrete abdominal or pelvic wall hernia. VASCULATURE: Unremarkable. Abdominal aorta is non-dilated. LYMPH NODES: Unremarkable. No enlarged lymph nodes. CT/Abdomen/Pelvis W IV Cont ONLY IMPRESSION: Probable severe colonic ileus. No definite obstruction. Possible fecal impaction in the rectum. Electronically Signed: Berny Hannon MD at 21:15 EDT ,
[2023-12-30 21:25] VITALS: BP 144/89; PULSE 94; RESP 18; TEMP 36.3; O2SAT 97
[2023-12-30] MEDS: Gabapentin 300 MG Capsule PO (21:28)
[2023-12-30 21:35] LABS: Anion Gap 7 (5-15); BUN 9 mg/dL (7-18); BUN/Creat Ratio 8.6 RATIO (10-20); Chloride 108 mmol/L (98-107); Creatinine, Serum 1.05 mg/dL (0.55-1.02); EST Glomerular Filtration Rate 57 mL/min (>60); Est Glom Filt Rate - Afr Amer 69 mL/min (>60); Estimated Creatinine Clearance 63.96 ml/min; Glucose 111 mg/dL (74-106); Potassium 3.1 mmol/L (3.5-5.1); Sodium Level 137 mmol/L (136-145)
[2023-12-30 21:40] LABS: Erythrocyte Sedimentation Rate 2 mm/hr (0-30)
[2023-12-30 21:45] LABS: Lactic Acid 0.7 mmol/L (0.4-1.9)
[2023-12-30] MEDS: Potassium Chloride Oral Tablet 20 MEQ 60 MEQ PO (22:38)
[2023-12-31] MEDS: 0.9% Saline Lock 10 ML Syringe IV ×3 (01:58→17:35)
[2023-12-31] MEDS: proCHLORPERazine 10 MG/2 ML Vial 5 MG IV ×2 (01:58→17:37)
[2023-12-31 03:36] VITALS: BP 125/79; PULSE 88; RESP 16; TEMP 37; O2SAT 93
[2023-12-31] MEDS: 0.9% Normal Saline (1000mL) 1,000 ML 100 ML IV ×2 (05:25→15:12)
[2023-12-31 05:40] VITALS: BMI 35.0
[2023-12-31] MEDS: Levothyroxine 150 MCG Tablet PO (06:14)
[2023-12-31] MEDS: Dicyclomine 10 MG Capsule PO ×3 (06:14→15:16)
[2023-12-31 07:22] VITALS: O2SAT 96
[2023-12-31 09:35] VITALS: BP 136/76; PULSE 93; RESP 18; TEMP 37.1; O2SAT 93
[2023-12-31] MEDS: Pantoprazole Sodium 40 MG Tablet PO (10:08)
[2023-12-31] MEDS: DULoxetine Hcl 30 MG Capsule PO (10:09)
[2023-12-31] MEDS: Hydroxychloroquine 200 MG Tablet PO ×2 (10:09→21:39)
[2023-12-31] MEDS: DULoxetine Hcl 60 MG Capsule PO (10:09)
[2023-12-31] MEDS: Enoxaparin 40 MG/0.4 ML Syringe SC (10:10)
[2023-12-31] MEDS: Loperamide (Oral Liquid) 1 MG/7.5 ML ML 2 MG PO (10:10)
[2023-12-31 11:39] LABS: Anion Gap 9 (5-15); BUN 10 mg/dL (7-18); BUN/Creat Ratio 9.1 RATIO (10-20); Calcium,Total 8.7 mg/dL (8.5-10.1); Chloride 111 mmol/L (98-107); EST Glomerular Filtration Rate 54 mL/min (>60); Est Glom Filt Rate - Afr Amer 65 mL/min (>60); Estimated Creatinine Clearance 62.97 ml/min; Glucose 105 mg/dL (74-106); Potassium 2.7 mmol/L (3.5-5.1); Sodium Level 141 mmol/L (136-145)
--- NOTE | 2023-12-31 12:59 | CASEMGMT ---
Social Work SW met w/pt, offered support as she just recently lost her . Pt states is doing okay, states has supportive siblings. SW remains available for support to pt as needed. SURESH Schaefer
[2023-12-31] MEDS: Potassium Chloride 10mEq/100mL 10 MEQ/100 ML IV.SOLN. 100 MEQ IV BOLUS ×5 (13:45→19:55)
[2023-12-31] MEDS: Ensure Plus High Protein 120 ML LIQUID PO ×2 (13:48→21:45)
[2023-12-31] MEDS: Mineral Oil 1 BOTTLE ENEMA 118 ML RC (14:01)
[2023-12-31] MEDS: Ondansetron 4 MG/2 ML Vial IV (15:12)
[2023-12-31 15:35] VITALS: BP 147/88; PULSE 97; RESP 18; TEMP 36.4; O2SAT 96
--- NOTE | 2023-12-31 17:38 | PCM.PN.HOSP ---
Reason for Visit Reason for Visit: Diagnoses Secondary polycythemia (12/29/23) Hypomagnesemia (12/29/23) Hypo-osmolality and hyponatremia (12/29/23) Hypokalemia (12/29/23) Nausea (12/29/23) Nausea with vomiting, unspecified (12/29/23) Diarrhea, unspecified (12/29/23) Hyperglycemia, unspecified (12/29/23) Other specified abnormal findings of blood chemistry (12/29/23) Subjective Subjective Patient was seen and examined today, she states she is still having diarrhea, patient's abdominal pelvic CT showed what appeared to be a colonic ileus with possible rectal impaction. I gave the patient an oral retention enema today. Patient's potassium was low and she has been given IV potassium replacement, BMP will be repeated tonight. Objective Data Objective Data Vital Signs: Vital Signs Temp Pulse Resp BP Pulse Ox O2 Del Method 97.6 F L 97 18 147/88 H 96 Room Air 12/31/23 15:35 12/31/23 15:35 12/31/23 15:35 12/31/23 15:35 12/31/23 15:35 12/31/23 16:19 Oxygen Delivery Method Room Air Weight: 95.6 kg Body Mass Index (BMI) 35.0 Intake & Output: Intake and Output for Last 24 Hours 12/29/23 12/30/23 12/31/23 23:59 23:59 23:59 Intake Total 1000 / 1000 4239 / 4239 3258.33 / 3258.33 Balance 1000 / 1000 4239 / 4239 3258.33 / 3258.33 Medical Nutrition Assessment Dietitian: Malnutrition Criteria Met Start: 12/30/23 15:28 Freq: Status: Active Protocol: Document 12/30/23 15:28 SB (Rec: 12/30/23 15:28 SB [id number]) Nutrition Malnutrition Evidence of Malnutrition Exists Yes Malnutrition (severe): Acute Illness/Injury Evidenced By Suboptimal Energy Intake ( Severe),Weight Loss (Severe) Clinical Problem Acute Disease or Injury Related Malnutrition Etiology severe related to inadequate oral intake Signs/Symptoms as evidence by PO <50% of estimated nutrition needs x 3 weeks and 12% weight loss x 2- 3 months, per pt report. Status Active Problem Recommendation Dietitian Recommendations/Changes Continue regular diet. Will order 120ml strawberry ensure plus high protein 4x with medpass. Will monitor weight, as available. Recommend appetite simulant, to help encourage PO intake. Reviewed and approved by Leila Mendez RD, LD. Lab / Micro Data 12/30/23 06:10 12/31/23 06:34 Labs: Laboratory Results - last 24 hr 12/30/23 20:44: ESR 2, Sodium 137, Potassium 3.1 L, Chloride 108 H, Carbon Dioxide 22.0, Anion Gap 7, BUN 9, Creatinine 1.05 H, Estim Creat Clear Calc 63.96, Est GFR (MDRD) Af Amer 69, Est GFR (MDRD) Non-Af 57 L, BUN/Creatinine Ratio 8.6 L, Glucose 111 H, Lactic Acid 0.7, Calcium 9.0, C-React Prot Ext Range 60.00 H 12/31/23 06:34: Sodium 141, Potassium 2.7 L*, Chloride 111 H, Carbon Dioxide 21.0, Anion Gap 9, BUN 10, Creatinine 1.10 H, Estim Creat Clear Calc 62.97, Est GFR (MDRD) Af Amer 65, Est GFR (MDRD) Non-Af 54 L, BUN/Creatinine Ratio 9.1 L, Glucose 105, Calcium 8.7 Micro: Microbiology 12/29/23 23:25 Stool Enteric Bacteriology - Final 12/29/23 23:25 Stool Clostridioides difficile (PCR) - Final Radiography Diagnostic Testing: Radiology Impression Abdomen/Pelvis CT 12/30/23 19:15 IMPRESSION: Probable severe colonic ileus. No definite obstruction. Possible fecal impaction in the rectum. Electronically Signed: Berny Hannon MD at 21:15 EDT , Physical Exam Narrative alert, oriented x3, no apparent distress and healthy appearing General Appearance: cooperative, well kempt and well developed Orientation / Consciousness: awake, oriented to person, oriented to place and oriented to time HEENT normocephalic and moist oral mucous membranes Eyes PERRL, EOMs intact bilaterally and conjunctivae normal Neck supple, no JVD, thyroid normal and no carotid bruits General: trachea midline Resp normal respiratory effort, no retractions, no use of accessory muscles and clear to auscultation bilaterally Auscultation: Negative for rales, rhonchi or wheezes Cardio regular rate, regular rhythm, S1 normal heart sound, S2 normal heart sound, no murmurs, no rub and no gallops GI normal to inspection, nondistended, normoactive bowel sounds, soft to palpation, non-tender and non-distended Extremity no clubbing, cyanosis or edema Skin no rashes or lesions noted General Skin Exam: no breakdown Neuro oriented x3, CN's II-XII intact bilaterally, moves all extremities, no focal motor deficits and no sensory deficits noted Sensorium / Orientation: awake and alert Speech: speech normal Psych affect normal Assessment & Plan Assessment/Plan (1) Nausea vomiting and diarrhea: PLAN: Plan 1. Gastroenteritis-most probably viral in nature, continue supportive therapy including fluids, antiemetics. #2 hypokalemia secondary to #1-patient was given potassium supplementation today, labs will be monitored #3 chronic depression-patient is on Cymbalta #4 hypothyroidism-patient is on Synthroid #5 GERD-patient is on a PPI #6 acute severe protein and caloric malnutrition-related to inadequate oral intake as evidenced by p.o. less than 50% of estimated nutritional needs x 3 weeks and 12% weight loss x 2 to 3 months per patient report-patient will be continued on a regular diet, 120 cc of strawberry Ensure Plus high-protein 4 times a day will be given with [email or web address], nutritional services will follow patient Total clinical time spent by myself addressing the patient's medical issues, reviewing all of her data, and collaborating with patient's care team: 35 minutes Charges/Coding Visit Charges Inpatient E&M: 14354 Subs Hosp L2
[2023-12-31 20:10] LABS: Anion Gap 10 (5-15); BUN 11 mg/dL (7-18); BUN/Creat Ratio 10.2 RATIO (10-20); Calcium,Total 8.7 mg/dL (8.5-10.1); Chloride 108 mmol/L (98-107); Creatinine, Serum 1.08 mg/dL (0.55-1.02); EST Glomerular Filtration Rate 55 mL/min (>60); Est Glom Filt Rate - Afr Amer 67 mL/min (>60); Estimated Creatinine Clearance 64.14 ml/min; Glucose 117 mg/dL (74-106); Potassium 2.9 mmol/L (3.5-5.1); Sodium Level 139 mmol/L (136-145)
[2023-12-31 21:35] VITALS: BP 141/79; PULSE 94; RESP 18; TEMP 36.8; O2SAT 94
[2023-12-31] MEDS: LORazepam 1 MG Tablet 2 MG PO (21:40)
[2023-12-31] MEDS: Gabapentin 300 MG Capsule PO (21:40)
[2024-01-01] MEDS: 0.9% Normal Saline (1000mL) 1,000 ML 100 ML IV ×3 (01:15→22:12)
[2024-01-01 03:25] VITALS: BP 141/79; PULSE 94; RESP 18; TEMP 36.8; O2SAT 94
[2024-01-01 05:50] VITALS: BMI 34.9
[2024-01-01] MEDS: Levothyroxine 150 MCG Tablet PO (06:48)
[2024-01-01 06:53] LABS: Anion Gap 7 (5-15); BUN 11 mg/dL (7-18); BUN/Creat Ratio 10.7 RATIO (10-20); Calcium,Total 8.7 mg/dL (8.5-10.1); Chloride 116 mmol/L (98-107); Creatinine, Serum 1.03 mg/dL (0.55-1.02); EST Glomerular Filtration Rate 58 mL/min (>60); Est Glom Filt Rate - Afr Amer 70 mL/min (>60); Estimated Creatinine Clearance 67.14 ml/min; Glucose 105 mg/dL (74-106); Potassium 2.5 mmol/L (3.5-5.1); Sodium Level 145 mmol/L (136-145)
[2024-01-01 08:16] VITALS: O2SAT 95
[2024-01-01 09:28] VITALS: BP 115/78; PULSE 117; RESP 16; TEMP 36.9; O2SAT 96
[2024-01-01] MEDS: Ensure Plus High Protein 120 ML LIQUID PO (09:40)
[2024-01-01] MEDS: DULoxetine Hcl 30 MG Capsule PO (09:40)
[2024-01-01] MEDS: Hydroxychloroquine 200 MG Tablet PO ×2 (09:40→21:16)
[2024-01-01] MEDS: DULoxetine Hcl 60 MG Capsule PO (09:40)
[2024-01-01] MEDS: Enoxaparin 40 MG/0.4 ML Syringe SC (09:40)
[2024-01-01] MEDS: Pantoprazole Sodium 40 MG Tablet PO (09:40)
[2024-01-01] MEDS: Acetaminophen 325 MG Tablet 650 MG PO ×2 (09:53→19:52)
[2024-01-01] MEDS: Potassium Chloride Oral Tablet 20 MEQ 60 MEQ PO (09:53)
[2024-01-01] MEDS: Dicyclomine 10 MG Capsule 20 MG PO ×2 (09:59→16:42)
[2024-01-01] MEDS: Potassium Chloride 10mEq/100mL 10 MEQ/100 ML IV.SOLN. 100 MEQ IV BOLUS ×4 (10:00→14:32)
[2024-01-01] MEDS: 0.9% Saline Lock 10 ML Syringe IV ×2 (10:00→16:50)
[2024-01-01 12:48] LABS: Anion Gap 6 (5-15); BUN 10 mg/dL (7-18); BUN/Creat Ratio 9.7 RATIO (10-20); Calcium,Total 8.5 mg/dL (8.5-10.1); Chloride 113 mmol/L (98-107); Creatinine, Serum 1.03 mg/dL (0.55-1.02); EST Glomerular Filtration Rate 58 mL/min (>60); Est Glom Filt Rate - Afr Amer 70 mL/min (>60); Estimated Creatinine Clearance 67.14 ml/min; Glucose 102 mg/dL (74-106); Potassium 2.8 mmol/L (3.5-5.1); Sodium Level 140 mmol/L (136-145)
[2024-01-01 12:54] LABS: Magnesium 1.8 mg/dL (1.6-2.6)
[2024-01-01 14:12] LABS: BNP,B-Type NATRIURETIC PEPTIDE 73.5 pg/mL (0-100)
[2024-01-01 14:18] LABS: Mucous, Urine 0 SEEN /hpf (<or=2+)
[2024-01-01 14:32] LABS: Color, Urine Yellow (Yellow); Glucose, Dipstick Normal (Normal); Ketone-Dipstick Negative (Negative); Leukocyte Esterase-Dipstick 500 /ul (Negative); Nitrite-Dipstick Positive (Negative); Occult Blood-Urine 50 /ul (Negative); Protein-Dipstick 30 mg/dl (Negative); Urine Bilirubin Dipstick Negative (Negative); Urine Clarity Turbid (Clear); Urine Urobilinogen Normal (Normal); Urine pH 6.5 (5.0 - 8.0)
[2024-01-01 14:40] LABS: Bacteria 4+ /hpf (None Seen); Squamous Epithelial Cells - UA 5-10 SEEN /hpf (5-10); White Blood Cells 50-100 SEEN /hpf (0-5)
[2024-01-01 14:41] LABS: Amorphous Sediment 3+; Red Blood Cells-Urine 5-10 SEEN /hpf (0-5)
[2024-01-01 16:31] VITALS: BP 117/71; PULSE 73; RESP 16; TEMP 36.4; O2SAT 99
[2024-01-01] MEDS: Ondansetron 4 MG/2 ML Vial IV (16:41)
[2024-01-01] MEDS: Loperamide (Oral Liquid) 1 MG/7.5 ML ML 2 MG PO (16:42)
--- NOTE | 2024-01-01 18:41 | PN.HOSP_ITS ---
Reason for Visit Reason for Visit: Diagnoses Secondary polycythemia (12/29/23) Hypomagnesemia (12/29/23) Hypo-osmolality and hyponatremia (12/29/23) Hypokalemia (12/29/23) Nausea (12/29/23) Nausea with vomiting, unspecified (12/29/23) Diarrhea, unspecified (12/29/23) Hyperglycemia, unspecified (12/29/23) Other specified abnormal findings of blood chemistry (12/29/23) Subjective Subjective Patient was seen and examined today, I talked briefly with gastroenterology by phone today, they recommended trying IV corticosteroids in case the patient does have microscopic colitis. Patient's potassium was low again today, I administered additional IV potassium, magnesium obtained today was normal, I decided to place the patient on scheduled Imodium to see if I could slow down her diarrhea. Objective Data Objective Data Vital Signs: Vital Signs Temp Pulse Resp BP Pulse Ox O2 Del Method 97.5 F L 73 16 117/71 99 Room Air 01/01/24 16:31 01/01/24 16:31 01/01/24 16:31 01/01/24 16:31 01/01/24 16:31 01/01/24 16:31 Oxygen Delivery Method Room Air Weight: 95.3 kg Body Mass Index (BMI) 34.9 Intake & Output: Intake and Output for Last 24 Hours 12/30/23 12/31/23 01/01/24 23:59 23:59 23:59 Intake Total 4239 / 4239 3558.33 / 3798.33 4000 / 4000 Balance 4239 / 4239 3558.33 / 3798.33 4000 / 4000 Medical Nutrition Assessment Dietitian: Malnutrition Criteria Met Start: 12/30/23 15:28 Freq: Status: Active Protocol: Document 12/30/23 15:28 SB (Rec: 12/30/23 15:28 SB [id number]) Nutrition Malnutrition Evidence of Malnutrition Exists Yes Malnutrition (severe): Acute Illness/Injury Evidenced By Suboptimal Energy Intake ( Severe),Weight Loss (Severe) Clinical Problem Acute Disease or Injury Related Malnutrition Etiology severe related to inadequate oral intake Signs/Symptoms as evidence by PO <50% of estimated nutrition needs x 3 weeks and 12% weight loss x 2- 3 months, per pt report. Status Active Problem Recommendation Dietitian Recommendations/Changes Continue regular diet. Will order 120ml strawberry ensure plus high protein 4x with medpass. Will monitor weight, as available. Recommend appetite simulant, to help encourage PO intake. Reviewed and approved by Leila Mendez RD, LD. Lab / Micro Data 12/30/23 06:10 01/01/24 11:55 Labs: Laboratory Results - last 24 hr 12/31/23 19:40: Sodium 139, Potassium 2.9 L, Chloride 108 H, Carbon Dioxide 21.0, Anion Gap 10, BUN 11, Creatinine 1.08 H, Estim Creat Clear Calc 64.14, Est GFR (MDRD) Af Amer 67, Est GFR (MDRD) Non-Af 55 L, BUN/Creatinine Ratio 10.2, G lucose 117 H, Calcium 8.7 01/01/24 05:30: Sodium 145, Potassium 2.5 L*, Chloride 116 H, Carbon Dioxide 22.0, Anion Gap 7, BUN 11, Creatinine 1.03 H, Estim Creat Clear Calc 67.14, Est GFR (MDRD) Af Amer 70, Est GFR (MDRD) Non-Af 58 L, BUN/Creatinine Ratio 10.7, Glucose 105, Calcium 8.7 01/01/24 11:55: Sodium 140, Potassium 2.8 L, Chloride 113 H, Carbon Dioxide 21.0, Anion Gap 6, BUN 10, Creatinine 1.03 H, Estim Creat Clear Calc 67.14, Est GFR (MDRD) Af Amer 70, Est GFR (MDRD) Non-Af 58 L, BUN/Creatinine Ratio 9.7 L, Glucose 102, Calcium 8.5, Magnesium 1.8, B-Natriuretic Peptide 73.5 01/01/24 14:05: Urine Color Yellow, Urine Clarity Turbid, Urine pH 6.5, Ur Specific [place] 1.010, Urine Protein 30 H, Urine Glucose (UA) Normal, Urine Ketones Negative, Urine Occult Blood 50 H, Urine Nitrite Positive H, Urine Bilirubin Negative, Urine Urobilinogen Normal, Ur Leukocyte Esterase 500 H, Urine RBC 5-10 SEEN, Urine WBC 50-100 SEEN, Ur Squamous Epith Cells 5-10 SEEN, Amorphous Sediment 3+, Urine Bacteria 4+, Urine Mucus 0 SEEN Micro: Microbiology 01/01/24 10:17 Stool Stool Lactoferrin - Final 12/29/23 23:25 Stool Enteric Bacteriology - Final 12/29/23 23:25 Stool Clostridioides difficile (PCR) - Final Physical Exam Narrative General Appearance: cooperative, well kempt and well developed Orientation / Consciousness: awake, oriented to person, oriented to place and oriented to time HEENT normocephalic and moist oral mucous membranes Eyes PERRL, EOMs intact bilaterally and conjunctivae normal Neck supple, no JVD, thyroid normal and no carotid bruits General: trachea midline Resp normal respiratory effort, no retractions, no use of accessory muscles and clear to auscultation bilaterally Auscultation: Negative for rales, rhonchi or wheezes Cardio regular rate, regular rhythm, S1 normal heart sound, S2 normal heart sound, no murmurs, no rub and no gallops GI normal to inspection, nondistended, normoactive bowel sounds, soft to palpation, non-tender and non-distended Extremity no clubbing, cyanosis or edema Skin no rashes or lesions noted General Skin Exam: no breakdown Neuro oriented x3, CN's II-XII intact bilaterally, moves all extremities, no focal motor deficits and no sensory deficits noted Sensorium / Orientation: awake and alert Speech: speech normal Psych affect normal Assessment & Plan Assessment/Plan (1) Nausea vomiting and diarrhea: PLAN: Plan 1. Gastroenteritis-most probably viral in nature, continue supportive therapy including fluids, antiemetics. I have decided to program her Imodium #2 hypokalemia secondary to #1-patient was given potassium supplementation today, labs will be monitored #3 chronic depression-patient is on Cymbalta #4 hypothyroidism-patient is on Synthroid #5 GERD-patient is on a PPI #6 acute severe protein and caloric malnutrition-related to inadequate oral intake as evidenced by p.o. less than 50% of estimated nutritional needs x 3 weeks and 12% weight loss x 2 to 3 months per patient report-patient will be continued on a regular diet, 120 cc of strawberry Ensure Plus high-protein 4 times a day will be given with [employer], nutritional services will follow patient Total clinical time spent by myself addressing the patient's medical issues, reviewing all of her data, and collaborating with patient's care team: 35 minutes Charges/Coding Visit Charges Inpatient E&M: 08024 Subs Hosp L2
[2024-01-01] MEDS: Loperamide 2 MG Capsule 4 MG PO ×2 (20:14→23:03)
[2024-01-01 20:16] VITALS: BP 129/76; PULSE 92; RESP 18; TEMP 36.6; O2SAT 96
[2024-01-01 20:29] VITALS: BP 129/76; PULSE 92; RESP 18; TEMP 36.6; O2SAT 96
[2024-01-01] MEDS: LORazepam 1 MG Tablet 2 MG PO (21:16)
[2024-01-01] MEDS: Gabapentin 300 MG Capsule PO (21:16)
[2024-01-01 21:44] LABS: Anion Gap 6 (5-15); BUN 10 mg/dL (7-18); BUN/Creat Ratio 9.5 RATIO (10-20); Calcium,Total 8.7 mg/dL (8.5-10.1); Chloride 116 mmol/L (98-107); Creatinine, Serum 1.05 mg/dL (0.55-1.02); EST Glomerular Filtration Rate 57 mL/min (>60); Est Glom Filt Rate - Afr Amer 69 mL/min (>60); Estimated Creatinine Clearance 65.86 ml/min; Glucose 127 mg/dL (74-106); Potassium 3.3 mmol/L (3.5-5.1); Sodium Level 141 mmol/L (136-145)
[2024-01-01] MEDS: Potassium Chloride Oral Tablet 20 MEQ 40 MEQ PO (23:00)
[2024-01-02 02:00] VITALS: BP 110/63; PULSE 79; RESP 16; TEMP 36.6; O2SAT 93
[2024-01-02 03:51] VITALS: BP 110/63; PULSE 79; RESP 16; TEMP 36.6; O2SAT 93
[2024-01-02 04:42] VITALS: BMI 20.3
[2024-01-02] MEDS: Loperamide 2 MG Capsule 4 MG PO (06:40)
[2024-01-02] MEDS: Levothyroxine 150 MCG Tablet PO (06:41)
[2024-01-02 06:54] LABS: Anion Gap 6 (5-15); BUN 8 mg/dL (7-18); BUN/Creat Ratio 9.1 RATIO (10-20); Calcium,Total 8.4 mg/dL (8.5-10.1); Chloride 119 mmol/L (98-107); Creatinine, Serum 0.88 mg/dL (0.55-1.02); EST Glomerular Filtration Rate 70 mL/min (>60); Est Glom Filt Rate - Afr Amer 85 mL/min (>60); Glucose 135 mg/dL (74-106); Potassium 3.6 mmol/L (3.5-5.1); Sodium Level 143 mmol/L (136-145)
[2024-01-02] MEDS: 0.9% Normal Saline (1000mL) 1,000 ML 100 ML IV (07:23)
[2024-01-02 08:31] VITALS: BP 94/53; PULSE 84; RESP 18; TEMP 36.7; O2SAT 93
[2024-01-02] MEDS: Enoxaparin 40 MG/0.4 ML Syringe SC (08:33)
[2024-01-02] MEDS: Hydroxychloroquine 200 MG Tablet PO (08:34)
[2024-01-02] MEDS: Ensure Plus High Protein 120 ML LIQUID PO (08:34)
[2024-01-02] MEDS: DULoxetine Hcl 60 MG Capsule PO (08:34)
[2024-01-02] MEDS: DULoxetine Hcl 30 MG Capsule PO (08:34)
[2024-01-02] MEDS: Dicyclomine 10 MG Capsule 20 MG PO (08:34)
[2024-01-02] MEDS: Pantoprazole Sodium 40 MG Tablet PO (08:34)
[2024-01-02] MEDS: Ondansetron 4 MG/2 ML Vial IV (11:07)
--- NOTE | 2024-01-02 11:57 | DCINST_ITS ---
Discharge Instructions Diet Discharge Diet: No restrictions Activity Discharge Activity: Return to Normal Activity Weight Bearing Status: Full weight bearing Follow Up Care Test Results: Test results from this visit will be discussed in further detail at your follow- up appointment, if applicable. Discharge Plan Admission Admit Date/Time: 12/29/23 23:46 Primary Reason for Your Visit: low potasium Attending Provider: Misael Bennett Primary Care Provider: Jacques Curry Consulting Providers: Mery Etienne Discharge Orders/Prescriptions Prescriptions: New loperamide 2 mg Capsule 4 mg PO TID Qty: 100 0RF Rx Instructions: 2 tabs 3 times a day for the next 4 days, then reduce to 2 tabs twice a day x 4 days, then use 2 tabs 4 times a day as needed for loose stool prednisone 20 mg tablet 20 mg PO BID Qty: 27 0RF Rx Instructions: 1 tab twice a day for 7 days, then 1-1/2 tabs daily for 5 days, then 1 tab daily x 5 days then stop ondansetron HCl 4 mg tablet 4 mg PO Q6H PRN (Reason: nausea and vomiting) Qty: 30 0RF Continued celecoxib 200 mg capsule 200 mg PO Q24H hydroxychloroquine 200 mg tablet 200 mg PO BID lorazepam 1 mg tablet 2 mg PO QHS PRN (Reason: sleep) levothyroxine 150 mcg tablet 150 mcg PO DAILY gabapentin 300 mg capsule 300 mg PO QHS cyanocobalamin (vitamin B-12) 1,000 mcg/mL solution 1,000 mcg IM QWEEK dextroamphetamine-amphetamine 20 mg tablet 2 tab PO DAILY duloxetine 30 mg capsule,delayed release(DR/EC) 30 mg PO DAILY duloxetine 60 mg capsule,delayed release(DR/EC) 60 mg PO DAILY omeprazole 40 mg capsule,delayed release(DR/EC) 40 mg PO DAILY Referrals / Follow Up: Josue Reddy DO [Med Staff - Active Staff] - See Referral Note (Follow-up if your diarrhea continues past 2 weeks) Jacques Curry [Primary Care Provider] - Within 1 Week Disposition Disposition (needs filled in before D/C Order can be placed): Home, Self Care
[2024-01-02 11:59] VITALS: BP 124/75; PULSE 81; RESP 18; TEMP 36.7; O2SAT 100
--- NOTE | 2024-01-02 12:07 | PCM.DC.SUM ---
Providers Date of Admission: 12/29/23 Date of Discharge: 01/02/24 Primary Care Physician: Jacques Curry Consultations 12/30/23 00:48 Consult: Gastroenterology Routine Consulting Provider: David G[facility] Reason for Consult: Nausea and Diarrhea EMERGENT Consult: No MD Notified: Yes Date Notified: 12/29/23 Time Notified: 23:48 Method of Notification: Text Reason For Visit: SEVERE HYPOKALEMIA/NAUSEA & DIARRHEA Diagnosis Discharge Diagnosis (1) Nausea vomiting and diarrhea: Status: Acute Code(s): R11.2 - Nausea with vomiting, unspecified; R19.7 - Diarrhea, unspecified Plan 1. Gastroenteritis-most probably viral in nature, continue supportive therapy including fluids, antiemetics. I have decided to program her Imodium #2 hypokalemia secondary to #1-patient was given potassium supplementation today, labs will be monitored #3 chronic depression-patient is on Cymbalta #4 hypothyroidism-patient is on Synthroid #5 GERD-patient is on a PPI #6 acute severe protein and caloric malnutrition-related to inadequate oral intake as evidenced by p.o. less than 50% of estimated nutritional needs x 3 weeks and 12% weight loss x 2 to 3 months per patient report-patient will be continued on a regular diet, 120 cc of strawberry Ensure Plus high-protein 4 times a day will be given with [employer], nutritional services will follow patient Total clinical time spent by myself addressing the patient's medical issues, reviewing all of her data, and collaborating with patient's care team: 35 minutes Medications at Discharge Home Medications celecoxib 200 mg capsule 200 mg PO Q24H pain 12/29/23 hydroxychloroquine 200 mg tablet 200 mg PO BID inflammation 12/29/23 levothyroxine 150 mcg tablet 150 mcg PO DAILY thyroid 12/29/23 lorazepam 1 mg tablet 2 mg PO QHS PRN sleep 12/29/23 cyanocobalamin (vitamin B-12) 1,000 mcg/mL injection solution 1,000 mcg IM QWEEK vitamin 12/30/23 dextroamphetamine-amphetamine 20 mg tablet 2 tab PO DAILY ADHD 12/30/23 duloxetine 30 mg capsule,delayed release 30 mg PO DAILY mental health 12/30/23 duloxetine 60 mg capsule,delayed release 60 mg PO DAILY mental health 12/30/23 gabapentin 300 mg capsule 300 mg PO QHS nerve pain 12/30/23 omeprazole 40 mg capsule,delayed release 40 mg PO DAILY gerd 12/30/23 loperamide 2 mg capsule 4 mg (2 x 2 mg) PO TID #100 caps 01/02/24 ondansetron HCl 4 mg tablet 4 mg PO Q6H PRN nausea and vomiting #30 tabs 01/02/24 prednisone 20 mg tablet 20 mg PO BID #27 tabs 01/02/24 Hospital Course Operations None Procedures None Summary of Care Provided Minutes Spent on Discharge: 31 Hospital Course: This 58-year-old white female was seen in the emergency room at [facility] with complaints of nausea vomiting and diarrhea. This has been over the past 3 to 4 weeks, she describes the diarrhea as watery. Labs obtained in the emergency room showed a normal white blood cell count, chemistry profile was remarkable for a potassium of 2.3, creatinine of 1.21, TSH was 4.58. Patient was admitted to PCU, she was given potassium replacement, labs were monitored, she was seen by gastroenterology and underwent a CT scan of the abdomen which showed evidence of stool and air throughout the intestinal tract, there was a question about a possible impaction but no evidence of colitis was noted. Patient had consistent potassium replacement during her hospitalization and was finally placed on Imodium and IV corticosteroids which improved her diarrhea. The exact etiology of the diarrhea was unknown, C. difficile was unremarkable and enteric pathogen panel was unremarkable. Patient's lactoferrin was positive. On 01/02/2024, patient was seen and examined: On examination she appeared in good health and spirits, she does not appear to be in any distress. Vital signs as documented. Skin warm and dry and without overt rashes. Neck without JVD, thyroid appears normal, trachea is midline, neck is supple. Lungs clear, normal air movement was noted. Heart exam notable for regular rhythm, normal sounds and absence of murmurs, rubs or gallops. Abdomen unremarkable and without evidence of organomegaly, masses, or abdominal aortic enlargement, bowel sounds are present in all 4 quadrants, no abdominal tenderness was noted. Extremities nonedematous, no cyanosis was noted, no clubbing was noted. Neuro: Cranial nerves II through XII are grossly intact, no focal motor deficits were noted, sensation to light touch and pinprick is intact, motor exam 5/5 throughout. Psych: Patient is alert and oriented x3, she does not appear anxious or depressed, she does not appear agitated. On 01/02/2024, patient was seen and examined and discharged in stable condition to home. Medical Records Data Medical Nutrition Assessment Dietitian: Malnutrition Criteria Met Start: 12/30/23 15:28 Freq: Status: Active Protocol: Document 12/30/23 15:28 SB (Rec: 12/30/23 15:28 SB [id number]) Nutrition Malnutrition Evidence of Malnutrition Exists Yes Malnutrition (severe): Acute Illness/Injury Evidenced By Suboptimal Energy Intake ( Severe),Weight Loss (Severe) Clinical Problem Acute Disease or Injury Related Malnutrition Etiology severe related to inadequate oral intake Signs/Symptoms as evidence by PO <50% of estimated nutrition needs x 3 weeks and 12% weight loss x 2- 3 months, per pt report. Status Active Problem Recommendation Dietitian Recommendations/Changes Continue regular diet. Will order 120ml strawberry ensure plus high protein 4x with medpass. Will monitor weight, as available. Recommend appetite simulant, to help encourage PO intake. Reviewed and approved by eLila Mendez, ISMAEL, LD. Weight / BMI Weight Weight: 95.3 kg Body Mass Index (BMI) 20.3 ABG / Lab / Microbiology Data 12/30/23 06:10 01/02/24 05:54 Laboratory: Laboratory Results - last 24 hr 01/01/24 11:55: Sodium 140, Potassium 2.8 L, Chloride 113 H, Carbon Dioxide 21.0, Anion Gap 6, BUN 10, Creatinine 1.03 H, Estim Creat Clear Calc 67.14, Est GFR (MDRD) Af Amer 70, Est GFR (MDRD) Non-Af 58 L, BUN/Creatinine Ratio 9.7 L, Glucose 102, Calcium 8.5, Magnesium 1.8, B-Natriuretic Peptide 73.5 01/01/24 14:05: Urine Color Yellow, Urine Clarity Turbid, Urine pH 6.5, Ur Specific [place] 1.010, Urine Protein 30 H, Urine Glucose (UA) Normal, Urine Ketones Negative, Urine Occult Blood 50 H, Urine Nitrite Positive H, Urine Bilirubin Negative, Urine Urobilinogen Normal, Ur Leukocyte Esterase 500 H, Urine RBC 5-10 SEEN, Urine WBC 50-100 SEEN, Ur Squamous Epith Cells 5-10 SEEN, Amorphous Sediment 3+, Urine Bacteria 4+, Urine Mucus 0 SEEN 01/01/24 20:19: Sodium 141, Potassium 3.3 L, Chloride 116 H, Carbon Dioxide 19.0 L, Anion Gap 6, BUN 10, Creatinine 1.05 H, Estim Creat Clear Calc 65.86, Est GFR (MDRD) Af Amer 69, Est GFR (MDRD) Non-Af 57 L, BUN/Creatinine Ratio 9.5 L, Glucose 127 H, Calcium 8.7 01/02/24 05:54: Sodium 143, Potassium 3.6, Chloride 119 H, Carbon Dioxide 18.0 L, Anion Gap 6, BUN 8, Creatinine 0.88, Estim Creat Clear Calc 60.20, Est GFR (MDRD) Af Amer 85, Est GFR (MDRD) Non-Af 70, BUN/Creatinine Ratio 9.1 L, Glucose 135 H, Calcium 8.4 L Microbiology: Microbiology 01/01/24 10:17 Stool Stool Lactoferrin - Final 12/29/23 23:25 Stool Enteric Bacteriology - Final 12/29/23 23:25 Stool Clostridioides difficile (PCR) - Final D/C Instructions Discharge Diet: No restrictions Weight Bearing Status: Full weight bearing Meaningful Use Info Meaningful Use Meaningful Use Diagnoses (Choose all that apply): None applicable Ischemic Stroke Statin Dosing Therapy Reference: STATIN DOSE THERAPY REFERENCE: * Patients > 75 years receive moderate or high dose statin therapy. * Patients 75 years or YOUNGER should receive HIGH intensity statin dose unless contraindicated. You will be required to document reason for non-treatment if statin daily dose does not meet guidelines. HIGH DOSE STATIN THERAPY DAILY Atorvastatin > than or = to 40 mg Rosuvastatin > than or = to 20 mg Amlodipine + Atorvastatin > than or = to 2.5/40 mg Ezetimibe + Simvastatin 10/80 mg Simvastatin 80mg Discharge Plan Admission Admit Date/Time: 12/29/23 23:46 Primary Reason for Your Visit: low potasium Attending Provider: Misael Bennett Primary Care Provider: Jacques Curry Consulting Providers: Mery Etienne Discharge Orders/Prescriptions Prescriptions: New loperamide 2 mg Capsule 4 mg PO TID Qty: 100 0RF Rx Instructions: 2 tabs 3 times a day for the next 4 days, then reduce to 2 tabs twice a day x 4 days, then use 2 tabs 4 times a day as needed for loose stool prednisone 20 mg tablet 20 mg PO BID Qty: 27 0RF Rx Instructions: 1 tab twice a day for 7 days, then 1-1/2 tabs daily for 5 days, then 1 tab daily x 5 days then stop ondansetron HCl 4 mg tablet 4 mg PO Q6H PRN (Reason: nausea and vomiting) Qty: 30 0RF Continued celecoxib 200 mg capsule 200 mg PO Q24H hydroxychloroquine 200 mg tablet 200 mg PO BID lorazepam 1 mg tablet 2 mg PO QHS PRN (Reason: sleep) levothyroxine 150 mcg tablet 150 mcg PO DAILY gabapentin 300 mg capsule 300 mg PO QHS cyanocobalamin (vitamin B-12) 1,000 mcg/mL solution 1,000 mcg IM QWEEK dextroamphetamine-amphetamine 20 mg tablet 2 tab PO DAILY duloxetine 30 mg capsule,delayed release(DR/EC) 30 mg PO DAILY duloxetine 60 mg capsule,delayed release(DR/EC) 60 mg PO DAILY omeprazole 40 mg capsule,delayed release(DR/EC) 40 mg PO DAILY Referrals / Follow Up: Josue Reddy DO [Med Staff - Active Staff] - See Referral Note (Follow-up if your diarrhea continues past 2 weeks) Jacques Curry [Primary Care Provider] - Within 1 Week Disposition Disposition (needs filled in before D/C Order can be placed): Home, Self Care Charges/Coding Visit Charges Inpatient E&M: 11250 Disch Hosp >30min
== END 2024-01-02 14:10 | disposition home or self-care (01) | DRG 391 ==
LOC: ED 23:56 → PCU 12-30 00:58
PROVIDERS: Internal Medicine; Internal Medicine Gastroenterology; Admitting Provider Internal Medicine; Emergency Provider Emergency Medicine; Visit Provider Internal Medicine
DX: A08.4 Viral intestinal infection, unspecified (principal); E43 Unspecified severe protein-calorie malnutrition; D84.9 Immunodeficiency, unspecified; F32.A Depression, unspecified; E03.9 Hypothyroidism, unspecified; E87.6 Hypokalemia; E86.0 Dehydration; E83.42 Hypomagnesemia; K44.9 Diaphragmatic hernia without obstruction or gangrene; K21.9 Gastro-esophageal reflux disease without esophagitis; D75.1 Secondary polycythemia; Z63.4 Disappearance and death of family member; F90.9 Attention-deficit hyperactivity disorder, unspecified type; R73.9 Hyperglycemia, unspecified; G89.29 Other chronic pain; Z68.20 Body mass index [BMI] 20.0-20.9, adult
CPT/HCPCS: 36415; 74177; 80048; 80053; 81001; 83036; 83605; 83630; 83690; 83735; 83880; 84100; 84443; 85025; 85652; 86140; 87493; 87506; 93005; 97802; 97803; 99285; J7030; J7040; Q9967; A4216; J2405

== ENCOUNTER 2024-01-09 14:18 | Emergency (ER) | payer MEDICARE, SELFPAY ==
[2024-01-09 14:19] VITALS: BP 117/73; PULSE 97; RESP 18; TEMP 35.7; O2SAT 97; BMI 34.9
--- NOTE | 2024-01-09 15:21 | EDS_ITS ---
HPI History of Present Illness Chief Complaint: Edema Narrative Narrative: Patient is a 58-year-old female with history of giant cell arteritis hypokalemia, obesity, high cholesterol presents to the emergency department with redness pain swelling to the left lower leg. Patient states over the last several hours, the pain has been worse, more swollen and is changing color. It is deep red, there is no warmth, no fever or chills. Patient having worsening pain. She has been on multiple months of steroids secondary to her giant cell arteritis. [facility] Medical History History of retinal detachment Lupus Rheumatoid arthritis Depression Anxiety Hypothyroidism Chronic pain Kidney stones GERD (gastroesophageal reflux disease) Heart murmur Home Medications ?Medication ?Instructions ?Recorded ?Last Taken ?Type celecoxib 200 mg capsule 200 mg PO Q24H pain 12/29/23 12/22/23 History hydroxychloroquine 200 mg tablet 200 mg PO BID inflammation 12/29/23 Unknown History levothyroxine 150 mcg tablet 150 mcg PO DAILY thyroid 12/29/23 Unknown History lorazepam 1 mg tablet 2 mg PO QHS PRN sleep 12/29/23 Unknown History cyanocobalamin (vitamin B-12) 1,000 mcg IM QWEEK vitamin 12/30/23 Unknown History 1,000 mcg/mL injection solution dextroamphetamine-amphetamine 20 2 tab PO DAILY ADHD 12/30/23 12/15/23 History mg tablet duloxetine 30 mg capsule,delayed 30 mg PO DAILY mental health 12/30/23 Unknown History release duloxetine 60 mg capsule,delayed 60 mg PO DAILY mental health 12/30/23 Unknown History release gabapentin 300 mg capsule 300 mg PO QHS nerve pain 12/30/23 Unknown History omeprazole 40 mg capsule,delayed 40 mg PO DAILY gerd 12/30/23 Unknown History release loperamide 2 mg capsule 4 mg (2 x 2 mg) PO TID #100 caps 01/02/24 Unknown Rx ondansetron HCl 4 mg tablet 4 mg PO Q6H PRN nausea and 01/02/24 Unknown Rx vomiting #30 tabs prednisone 20 mg tablet 20 mg PO BID #27 tabs 01/02/24 Unknown Rx Allergy/AdvReac Type Severity Reaction Status Date / Time Sulfa (Sulfonamide AdvReac Mild NEEDS Verified 01/09/24 14:19 Antibiotics) (sulfa drugs) FOLLOW-UP Family History (Updated 12/30/23 @ 01:[address] Mery Etienne DO) Other CVA (cerebral vascular accident) Cancer Hypertension Thyroid disorder Surgical History H/O vascular surgery H/O foot surgery H/O: hysterectomy History of facelift History of carpal tunnel surgery History of gastric bypass Social History (Updated 12/30/23 @ 01:[address] Mery Etienne DO) household members: none housing: house Smoking Status: Never smoker alcohol intake: never substance use type: does not use additional social history: about 1 week ago ROS ROS ED ROS Narrative Constitutional: Negative for fever, chills, weight loss, weakness Eyes: Negative for vision loss, vision change, double vision ENT: Negative for any sore throat, ear pain, congestion Cardiovascular: Negative for any chest pain, tightness, palpitations Respiratory: Negative for any cough, sputum production, hemoptysis, dyspnea, dyspnea on exertion, orthopnea Gastrointestinal: Negative for any abdominal pain, nausea, vomiting, diarrhea, constipation, blood in stool, blood in vomit : Negative for any urinary frequency, dysuria, retention, blood in urine Muscle skeletal: Negative for any neck pain, back pain. Positive for left lower leg pain, left leg swelling Neurological: Negative for any headache, syncope, dizziness Skin: Negative for any rashes, itching, abrasions, lacerations. Positive for redness, pain to the left lower leg Psychiatric: Negative for any depression, anxiety, stress, suicidal ideation, homicidal ideation Hematologic: Negative for any excessive bruising, easy bleeding EXAM Physical Exam Narrative Exam Narrative: Vital signs reviewed. HEET: Head normocephalic atraumatic, TMs clear bilaterally. Posterior pharynx is clear, moist mucous membranes. Nares clear bilaterally. Neck: Supple with no lymphadenopathy or tenderness. No signs of meningismus. Cardiac: Regular rate and rhythm no murmurs gallops or rubs, equal peripheral pulses bilaterally. Respiratory: Lungs clear to auscultation bilaterally. No chest tenderness. Abdomen: Soft, nontender, nondistended. No abdominal bruit or pulsatile masses. No hepatosplenomegaly Extremities: Patient does have bilateral pitting edema to the lower extremities. The left leg has some erythema, look to be varicose veins of the foot, patient has petechiae with his deep dark redness circumferential around the left ankle, left calf just below the knee. There is a open wound on the calf that is slight clear drainage. It is cool to the touch however the other leg is cool to the touch as well. Patient does have a pedal pulse that is found using Doppler secondary to all the edema. Neuro: Cranial nerves II through XII intact, no focal neurological deficits. Skin: Clean dry and intact with no rash, purpura, petechiae, vesicles or pustules. Backs/flank: No CVA tenderness, no midline spinal tenderness, no deformity. Psych: Normal mood and affect. No SI, HI or acute psychosis. Const Vital Signs: 01/09/24 14:19 01/09/24 15:09 Temperature 96.3 F L Temperature Source Temporal Pulse Rate 97 Respiratory Rate 18 Respiratory Effort Normal Non-Labored Respiratory Pattern Normal Blood Pressure 117/73 Blood Pressure Mean 87 Pulse Ox 97 Oxygen Delivery Method Room Air Positive obese Nutritional Appearance: obese MDM MDM Treatment and Re-Evaluation :: Differential diagnosis includes however is not limited to: Low platelets, cellulitis, DVT, necrotizing fasciitis, vascular injury, Patient appears to be in no obvious distress vital signs are stable, presenting to the emergency department with complaints of color change, swelling, pain to the left lower extremity. Patient does have a pulse found by Doppler. Patient will have basic laboratory values sent including lactic acid. Discharge Plan Triage Chief Complaint: Edema ED Midlevel Provider: Omari Casiano ED Provider: Provider,Ed Physician Dx/Rx/DC Orders Prescriptions: No Action celecoxib 200 mg capsule 200 mg PO Q24H hydroxychloroquine 200 mg tablet 200 mg PO BID lorazepam 1 mg tablet 2 mg PO QHS PRN (Reason: sleep) levothyroxine 150 mcg tablet 150 mcg PO DAILY gabapentin 300 mg capsule 300 mg PO QHS cyanocobalamin (vitamin B-12) 1,000 mcg/mL solution 1,000 mcg IM QWEEK dextroamphetamine-amphetamine 20 mg tablet 2 tab PO DAILY duloxetine 30 mg capsule,delayed release(DR/EC) 30 mg PO DAILY duloxetine 60 mg capsule,delayed release(DR/EC) 60 mg PO DAILY omeprazole 40 mg capsule,delayed release(DR/EC) 40 mg PO DAILY loperamide 2 mg Capsule 4 mg PO TID Qty: 100 0RF Rx Instructions: 2 tabs 3 times a day for the next 4 days, then reduce to 2 tabs twice a day x 4 days, then use 2 tabs 4 times a day as needed for loose stool prednisone 20 mg tablet 20 mg PO BID Qty: 27 0RF Rx Instructions: 1 tab twice a day for 7 days, then 1-1/2 tabs daily for 5 days, then 1 tab daily x 5 days then stop ondansetron HCl 4 mg tablet 4 mg PO Q6H PRN (Reason: nausea and vomiting) Qty: 30 0RF Primary Care Provider: Jacques Curry Referrals: Jacques Curry [Primary Care Provider] - Print Language: Albanian
--- NOTE | 2024-01-09 17:01 | EDS_ITS ---
HPI <SUZANNE Hinds - Last Filed: 01/09/24 19:25> History of Present Illness Chief Complaint: Edema Narrative Narrative: Patient is a 58-year-old female with history of recent admission for hypokalemia, diarrhea. Patient was admitted for couple days getting electrolytes and fluids. She was discharged 8 days ago. Since then, she has been having intermittent swelling to both feet, right hand. Patient dates that is worse at night when she has been up and about all day. She called her PCP who not get her in and they referred her to the emergency department. Patient denies any chest pain, shortness of breath. Patient here for evaluation [facility] <SUZANNE Hinds - Last Filed: 01/09/24 19:25> [facility] Medical History Nausea vomiting and diarrhea Dehydration Hypomagnesemia Acute hypokalemia Hyperglycemia Hyponatremia Erythrocytosis Elevated serum creatinine Hypomagnesemia Hypokalemia Diarrhea Nausea Vitamin deficiency Vision problem Rheumatoid arthritis Heart murmur Hypoglycemia Hormone deficiency Carpal tunnel syndrome Bone fracture Back problem Abscess of back History of retinal detachment GERD (gastroesophageal reflux disease) Lupus Osteoarthritis Hypothyroid Anemia History of retinal detachment Lupus Rheumatoid arthritis Depression Anxiety Hypothyroidism Chronic pain Kidney stones GERD (gastroesophageal reflux disease) Heart murmur Home Medications ?Medication ?Instructions ?Recorded ?Last Taken ?Type diclofenac sodium 1 % topical gel 2 g topical ONCE 08/02/23 Unknown History (Voltaren Arthritis Pain) omeprazole 40 mg capsule,delayed 40 mg PO DAILY 08/02/23 Unknown History release tramadol 50 mg tablet 50 mg PO BID PRN 08/02/23 Unknown History gabapentin 300 mg capsule 300 mg PO DAILY 09/04/23 Unknown History duloxetine 30 mg capsule,delayed 30 mg PO DAILY #90 caps 11/12/23 Unknown Rx release duloxetine 60 mg capsule,delayed 60 mg PO DAILY #90 caps 11/12/23 Unknown Rx release (Cymbalta) celecoxib 200 mg capsule (Celebrex) 200 mg PO DAILY PRN pain #90 caps 11/21/23 Unknown Rx hydroxychloroquine 200 mg tablet 200 mg PO DAILY #90 tabs 11/21/23 Unknown Rx (Plaquenil) levothyroxine 137 mcg tablet 137 mcg PO DAILY #90 tabs 11/21/23 Unknown Rx cyanocobalamin (vitamin B-12) 1,000 mcg IM QWEEK vitamin 12/30/23 Unknown History 1,000 mcg/mL injection solution loperamide 2 mg capsule 4 mg (2 x 2 mg) PO TID #100 caps 01/02/24 Unknown Rx ondansetron HCl 4 mg tablet 4 mg PO Q6H PRN nausea and 01/02/24 Unknown Rx vomiting #30 tabs dextroamphetamine-amphetamine 20 40 mg (2 x 20 mg) PO DAILY 30 days 01/07/24 Unknown Rx mg tablet (Adderall) #60 tabs lorazepam 1 mg tablet 2 mg (2 x 1 mg) PO DAILY PRN 01/09/24 Unknown Rx anxiety #60 tabs dextroamphetamine-amphetamine 20 40 mg (2 x 20 mg) PO QDAY 30 days 01/15/24 Unknown Rx mg tablet #60 tabs dextroamphetamine-amphetamine 20 40 mg (2 x 20 mg) PO QDAY 30 days 01/15/24 Unknown Rx mg tablet #60 tabs lorazepam 1 mg tablet 2 mg (2 x 1 mg) PO QDAY PRN 01/15/24 Unknown Rx anxiety 30 days #60 tabs Allergy/AdvReac Type Severity Reaction Status Date / Time sodium chloride (From Optics Allergy Mild rash Verified 01/15/24 09:16 Eye Wash) Sulfa (Sulfonamide AdvReac Mild NEEDS Verified 01/15/24 09:16 Antibiotics) (sulfa drugs) FOLLOW-UP Family History Mother Arthritis Depressed Hypertension Hormone disorder Thyroid disorder Cancer pancreatic Father Heart disease Hypertension Thyroid disorder CVA (cerebral vascular accident) Grandfather Arthritis History of blood clots Colon cancer Grandmother Depressed Cancer biliary Aunt Breast cancer Sister Thyroid disorder Uncle CVA (cerebral vascular accident) Aunt Colon cancer Other AAA (abdominal aortic aneurysm) Surgical History History of facelift H/O vascular surgery History of ear surgery History of carpal tunnel release History of hysterectomy Hx of detached retina repair History of cataract extraction History of foot surgery History of gastric bypass H/O vascular surgery H/O foot surgery H/O: hysterectomy History of facelift History of carpal tunnel surgery History of gastric bypass Social History household members: spouse and none housing: house 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 Smoking Status: Never smoker Electronic Cigarette Use: not used alcohol intake: never substance use type: does not use what type of physical activity do you participate in: walking frequency: daily seatbelt use: always do you feel safe at home: Yes additional social history: about 1 week ago ROS <SUZANNE Hinds - Last Filed: 01/09/24 19:25> ROS ED ROS Narrative Constitutional: Negative for fever, chills, weight loss, weakness Eyes: Negative for vision loss, vision change, double vision ENT: Negative for any sore throat, ear pain, congestion Cardiovascular: Negative for any chest pain, tightness, palpitations Respiratory: Negative for any cough, sputum production, hemoptysis, dyspnea, dyspnea on exertion, orthopnea Gastrointestinal: Negative for any abdominal pain, nausea, vomiting, diarrhea, constipation, blood in stool, blood in vomit : Negative for any urinary frequency, dysuria, retention, blood in urine Muscle skeletal: Negative for any neck pain, back pain. Positive for bilateral feet edema, intermittent left hand edema Neurological: Negative for any headache, syncope, dizziness Skin: Negative for any rashes, itching, abrasions, lacerations Psychiatric: Negative for any depression, anxiety, stress, suicidal ideation, homicidal ideation Hematologic: Negative for any excessive bruising, easy bleeding EXAM <SUZANNE Hinds - Last Filed: 01/09/24 19:25> Physical Exam Narrative Exam Narrative: Vital signs reviewed. HEET: Head normocephalic atraumatic, TMs clear bilaterally. Posterior pharynx is clear, moist mucous membranes. Nares clear bilaterally. Neck: Supple with no lymphadenopathy or tenderness. No signs of meningismus. Cardiac: Regular rate and rhythm no murmurs gallops or rubs, equal peripheral pulses bilaterally. Respiratory: Lungs clear to auscultation bilaterally. No chest tenderness. Abdomen: Soft, nontender, nondistended. No abdominal bruit or pulsatile masses. No hepatosplenomegaly Extremities: Slight edema to bilateral ankles, this was not pitting, is no redness, +2 pedal pulses. No signs of gross trauma or deformity. Active full range of motion of all extremities. Neuro: Cranial nerves II through XII intact, no focal neurological deficits. Skin: Clean dry and intact with no rash, purpura, petechiae, vesicles or pustules. Backs/flank: No CVA tenderness, no midline spinal tenderness, no deformity. Psych: Normal mood and affect. No SI, HI or acute psychosis. Const Vital Signs: 01/09/24 14:19 01/09/24 15:01/09/24 17:54 Temperature 96.3 F L Temperature Source Temporal Pulse Rate 97 77 Respiratory Rate 18 19 H Respiratory Effort Normal Non-Labored Respiratory Pattern Normal Blood Pressure 117/73 120/70 Blood Pressure Mean 87 86 Pulse Ox 97 98 Oxygen Delivery Method Room Air Room Air 01/09/24 19:00 Temperature Temperature Source Pulse Rate 81 Respiratory Rate 16 Respiratory Effort Respiratory Pattern Blood Pressure 118/76 Blood Pressure Mean 90 Pulse Ox 92 Oxygen Delivery Method Room Air <Dr. Pat King DO - Last Filed: 01/17/24 06:35> Physical Exam Const Vital Signs: 01/09/24 14:19 01/09/24 15:09 01/09/24 17:54 Temperature 96.3 F L Temperature Source Temporal Pulse Rate 97 77 Respiratory Rate 18 19 H Respiratory Effort Normal Non-Labored Respiratory Pattern Normal Blood Pressure 117/73 120/70 Blood Pressure Mean 87 86 Pulse Ox 97 98 Oxygen Delivery Method Room Air Room Air 01/09/24 19:00 Temperature Temperature Source Pulse Rate 81 Respiratory Rate 16 Respiratory Effort Respiratory Pattern Blood Pressure 118/76 Blood Pressure Mean 90 Pulse Ox 92 Oxygen Delivery Method Room Air [facility] <SUZANNE Hinds - Last Filed: 01/09/24 19:25> [facility] Lab Data Labs: Laboratory Results - last 24 hr 01/09/24 01/09/24 01/09/24 15:34 15:34 15:40 WBC Cancelled Corrected WBC Cancelled RBC Cancelled Hgb Cancelled Hct Cancelled MCV Cancelled MCH Cancelled MCHC Cancelled RDW Std Deviation Cancelled RDW Coeff of [place] Cancelled Plt Count Cancelled MPV Cancelled Immature Gran % (Auto) Cancelled Neut % (Auto) Cancelled Lymph % (Auto) Cancelled Brown % (Auto) Cancelled Eos % (Auto) Cancelled Baso % (Auto) Cancelled Absolute Neuts (auto) Cancelled Absolute Lymphs (auto) Cancelled Total Counted Cancelled Neutrophils % (Manual) Cancelled Band Neutrophils % Cancelled Lymphocytes % (Manual) Cancelled Monocytes % (Manual) Cancelled Eosinophils % (Manual) Cancelled Basophils % (Manual) Cancelled Metamyelocytes % Cancelled Myelocytes % Cancelled Promyelocytes % Cancelled Blast Cells % Cancelled Plasma Cell % (Manual) Cancelled Other Cells % Cancelled Nucleated RBC % Cancelled Nucleated RBCs/100 WBC Cancelled Differential Comment Cancelled Diff Path Review Cancelled Hypersegmented Neuts Cancelled Atypical Lymphocytes Cancelled Reactive Lymphocytes Cancelled Smudge Cells Cancelled Toxic Granulation Cancelled Toxic Vacuolation Cancelled Dohle Bodies Cancelled Elvira Rods Cancelled Platelet Estimate Cancelled Plt Morphology Comment Cancelled RBC Morphology Cancelled Cancelled Polychromasia Cancelled Hypochromasia Cancelled Basophilic Stippling Cancelled Anisocytosis Cancelled Microcytosis Cancelled Macrocytosis Cancelled Spherocytes Cancelled Sickle Cells Cancelled Target Cells Cancelled Tear Drop Cells Cancelled Ovalocytes Cancelled Stomatocytes Cancelled [place] Bodies Cancelled [place] Cells Cancelled Bite Cells Cancelled Crenated Cell Cancelled Acanthocytes (Spur) Cancelled Rouleaux Cancelled Schistocytes Cancelled PT Cancelled INR Cancelled Sodium Cancelled Potassium Cancelled Chloride Cancelled Carbon Dioxide Cancelled Anion Gap Cancelled BUN Cancelled Creatinine Cancelled Estim Creat Clear Calc Cancelled Est GFR (MDRD) Af Amer Cancelled Est GFR (MDRD) Non-Af Cancelled BUN/Creatinine Ratio Cancelled Glucose Cancelled Lactic Acid Cancelled Calcium Cancelled Magnesium Total Bilirubin Cancelled Direct Bilirubin AST Cancelled ALT Cancelled Alkaline Phosphatase Cancelled C-React Prot Ext Range Cancelled B-Natriuretic Peptide Total Protein Cancelled Albumin Cancelled Globulin Cancelled Albumin/Globulin Ratio Cancelled 01/09/24 17:58 WBC 5.8 Corrected WBC RBC 3.64 L Hgb 11.0 L Hct 35.1 L MCV 96.4 MCH 30.2 MCHC 31.3 L RDW Std Deviation 47.5 H RDW Coeff of [place] 13.8 Plt Count 239 MPV 9.8 Immature Gran % (Auto) 1.600 H Neut % (Auto) 61.1 Lymph % (Auto) 25.9 Brown % (Auto) 9.2 Eos % (Auto) 1.9 Baso % (Auto) 0.3 Absolute Neuts (auto) 3.5 Absolute Lymphs (auto) 1.50 Total Counted Neutrophils % (Manual) Band Neutrophils % Lymphocytes % (Manual) Monocytes % (Manual) Eosinophils % (Manual) Basophils % (Manual) Metamyelocytes % Myelocytes % Promyelocytes % Blast Cells % Plasma Cell % (Manual) Other Cells % Nucleated RBC % 0 Nucleated RBCs/100 WBC Differential Comment Diff Path Review Hypersegmented Neuts Atypical Lymphocytes Reactive Lymphocytes Smudge Cells Toxic Granulation Toxic Vacuolation Dohle Bodies Elvira Rods Platelet Estimate Plt Morphology Comment RBC Morphology Polychromasia Hypochromasia Basophilic Stippling Anisocytosis Microcytosis Macrocytosis Spherocytes Sickle Cells Target Cells Tear Drop Cells Ovalocytes Stomatocytes [place] Bodies [place] Cells Bite Cells Crenated Cell Acanthocytes (Spur) Rouleaux Schistocytes PT INR Sodium 141 Potassium 3.8 Chloride 106 Carbon Dioxide 31.0 Anion Gap 4 L BUN 8 Creatinine 0.92 Estim Creat Clear Calc 75.13 Est GFR (MDRD) Af Amer 80 Est GFR (MDRD) Non-Af 67 BUN/Creatinine Ratio 8.7 L Glucose 97 Lactic Acid Calcium 8.8 Magnesium 2.3 Total Bilirubin 0.30 Direct Bilirubin 0.13 AST 15 ALT 27 Alkaline Phosphatase 69 C-React Prot Ext Range B-Natriuretic Peptide 32.1 Total Protein 6.0 L Albumin 3.2 Globulin 2.8 Albumin/Globulin Ratio Radiography Diagnostic Testing: Clinical Impression(s) from Imaging Studies Chest X-Ray 01/09/24 18:00 IMPRESSION: No radiographic evidence of acute cardiopulmonary disease. Electronically Signed: Jermain Strickland MD at 18:28 EDT Reading Location ID and State: [facility] / [place] Tel , Service support , Treatment and Re-Evaluation :: Differential diagnosis includes however is not limited to: DVT, dependent edema, cellulitis, electrode abnormality, CHF Patient appears to be in no obvious respiratory distress, patient's vital signs are stable, nontoxic-appearing. Presenting to the emergency department for edema to bilateral legs, right hand. Patient will receive basic laboratory values, CBC BMP liver panel, BNP. Chest x-ray two-view will be obtained. I have low suspicion for any DVT or cellulitis. All radiologic examinations were read, reviewed by the emergency department attending. From these reads, a plan of care will be put in place. Patient's CBC showed a hemoglobin of 11.0, patient was 12 in early December, BMP was unremarkable, BNP was negative. Chest x-ray two-view was negative. Patient will be ambulated with pulse oxygenation. Physical examination consistent with more of a dependent edema. Patient ambulated well, at this time, do the patient stay for discharge. Patient will be instructed to elevate the legs, also use NIEVES hose. She will follow-up outpatient. Stable for discharge. <Dr. Pat King, DO - Last Filed: 01/17/24 06:35> [facility] Lab Data Labs: Laboratory Results - last 24 hr 01/09/24 01/09/24 01/09/24 15:34 15:34 15:40 WBC Cancelled Corrected WBC Cancelled RBC Cancelled Hgb Cancelled Hct Cancelled MCV Cancelled MCH Cancelled MCHC Cancelled RDW Std Deviation Cancelled RDW Coeff of [place] Cancelled Plt Count Cancelled MPV Cancelled Immature Gran % (Auto) Cancelled Neut % (Auto) Cancelled Lymph % (Auto) Cancelled Brown % (Auto) Cancelled Eos % (Auto) Cancelled Baso % (Auto) Cancelled Absolute Neuts (auto) Cancelled Absolute Lymphs (auto) Cancelled Total Counted Cancelled Neutrophils % (Manual) Cancelled Band Neutrophils % Cancelled Lymphocytes % (Manual) Cancelled Monocytes % (Manual) Cancelled Eosinophils % (Manual) Cancelled Basophils % (Manual) Cancelled Metamyelocytes % Cancelled Myelocytes % Cancelled Promyelocytes % Cancelled Blast Cells % Cancelled Plasma Cell % (Manual) Cancelled Other Cells % Cancelled Nucleated RBC % Cancelled Nucleated RBCs/100 WBC Cancelled Differential Comment Cancelled Diff Path Review Cancelled Hypersegmented Neuts Cancelled Atypical Lymphocytes Cancelled Reactive Lymphocytes Cancelled Smudge Cells Cancelled Toxic Granulation Cancelled Toxic Vacuolation Cancelled Dohle Bodies Cancelled Elvira Rods Cancelled Platelet Estimate Cancelled Plt Morphology Comment Cancelled RBC Morphology Cancelled Cancelled Polychromasia Cancelled Hypochromasia Cancelled Basophilic Stippling Cancelled Anisocytosis Cancelled Microcytosis Cancelled Macrocytosis Cancelled Spherocytes Cancelled Sickle Cells Cancelled Target Cells Cancelled Tear Drop Cells Cancelled Ovalocytes Cancelled Stomatocytes Cancelled [place] Bodies Cancelled Nadja Cells Cancelled Bite Cells Cancelled Crenated Cell Cancelled Acanthocytes (Spur) Cancelled Rouleaux Cancelled Schistocytes Cancelled PT Cancelled INR Cancelled Sodium Cancelled Potassium Cancelled Chloride Cancelled Carbon Dioxide Cancelled Anion Gap Cancelled BUN Cancelled Creatinine Cancelled Estim Creat Clear Calc Cancelled Est GFR (MDRD) Af Amer Cancelled Est GFR (MDRD) Non-Af Cancelled BUN/Creatinine Ratio Cancelled Glucose Cancelled Lactic Acid Cancelled Calcium Cancelled Magnesium Total Bilirubin Cancelled Direct Bilirubin AST Cancelled ALT Cancelled Alkaline Phosphatase Cancelled C-React Prot Ext Range Cancelled B-Natriuretic Peptide Total Protein Cancelled Albumin Cancelled Globulin Cancelled Albumin/Globulin Ratio Cancelled 01/09/24 17:58 WBC 5.8 Corrected WBC RBC 3.64 L Hgb 11.0 L Hct 35.1 L MCV 96.4 MCH 30.2 MCHC 31.3 L RDW Std Deviation 47.5 H RDW Coeff of [place] 13.8 Plt Count 239 MPV 9.8 Immature Gran % (Auto) 1.600 H Neut % (Auto) 61.1 Lymph % (Auto) 25.9 Brown % (Auto) 9.2 Eos % (Auto) 1.9 Baso % (Auto) 0.3 Absolute Neuts (auto) 3.5 Absolute Lymphs (auto) 1.50 Total Counted Neutrophils % (Manual) Band Neutrophils % Lymphocytes % (Manual) Monocytes % (Manual) Eosinophils % (Manual) Basophils % (Manual) Metamyelocytes % Myelocytes % Promyelocytes % Blast Cells % Plasma Cell % (Manual) Other Cells % Nucleated RBC % 0 Nucleated RBCs/100 WBC Differential Comment Diff Path Review Hypersegmented Neuts Atypical Lymphocytes Reactive Lymphocytes Smudge Cells Toxic Granulation Toxic Vacuolation Dohle Bodies Elvira Rods Platelet Estimate Plt Morphology Comment RBC Morphology Polychromasia Hypochromasia Basophilic Stippling Anisocytosis Microcytosis Macrocytosis Spherocytes Sickle Cells Target Cells Tear Drop Cells Ovalocytes Stomatocytes [place] Bodies Nadja Cells Bite Cells Crenated Cell Acanthocytes (Spur) Rouleaux Schistocytes PT INR Sodium 141 Potassium 3.8 Chloride 106 Carbon Dioxide 31.0 Anion Gap 4 L BUN 8 Creatinine 0.92 Estim Creat Clear Calc 75.13 Est GFR (MDRD) Af Amer 80 Est GFR (MDRD) Non-Af 67 BUN/Creatinine Ratio 8.7 L Glucose 97 Lactic Acid Calcium 8.8 Magnesium 2.3 Total Bilirubin 0.30 Direct Bilirubin 0.13 AST 15 ALT 27 Alkaline Phosphatase 69 C-React Prot Ext Range B-Natriuretic Peptide 32.1 Total Protein 6.0 L Albumin 3.2 Globulin 2.8 Albumin/Globulin Ratio Radiography Diagnostic Testing: Clinical Impression(s) from Imaging Studies Chest X-Ray 01/09/24 18:00 IMPRESSION: No radiographic evidence of acute cardiopulmonary disease. Electronically Signed: Jermain Strickland MD at 18:28 EDT , Treatment and Re-Evaluation :: Differential diagnosis includes however is not limited to: DVT, dependent edema, cellulitis, electrode abnormality, CHF Patient appears to be in no obvious respiratory distress, patient's vital signs are stable, nontoxic-appearing. Presenting to the emergency department for edema to bilateral legs, right hand. Patient will receive basic laboratory values, CBC BMP liver panel, BNP. Chest x-ray two-view will be obtained. I have low suspicion for any DVT or cellulitis. All radiologic examinations were read, reviewed by the emergency department attending. From these reads, a plan of care will be put in place. Patient's CBC showed a hemoglobin of 11.0, patient was 12 in early December, BMP was unremarkable, BNP was negative. Chest x-ray two-view was negative. Patient will be ambulated with pulse oxygenation. Physical examination consistent with more of a dependent edema. Patient ambulated well, at this time, do the patient stay for discharge. Patient will be instructed to elevate the legs, also use NIEVES hose. She will follow-up outpatient. Stable for discharge. I have personally performed a face to face assessment of the patient and have reviewed the SARAHI Note. I performed a substantive portion of the visit including all aspects of the following. My herrera findings include: Medical Decison Making patient is a 58-year-old female presenting with increased swelling after recent admission for diarrhea. Was recently on steroids. Swelling seems to be worse at the end of the day and better when she elevates her legs. Clinically low suspicion for DVT or cellulitis. I suspect she is third spacing as she has a documented malnutrition and just received IV fluids. Will check electrolytes as well as CBC looking anemia to make sure this is not symptomatic anemia causing the edema/high-output heart failure. Check a chest x-ray for signs of fluid overload as well as a BNP. Chest x-ray viewed by myself as well as radiology does not show any acute process. Patient does have a mild anemia however her most recent CBC in our system was from when she was admitted for dehydration for diarrhea and I susp ect she was hemoconcentrated. She is near her baseline (12). Patient does not report any bleeding. She has a normal BUN and creatinine low sufficient for an occult GI bleed. Protein is mildly low. Her BNP is low. I do not suspect acute heart failure. Patient is ambulated with no desaturation. Suspect this is third spacing/as she recently received IV fluids. Is counseled on elevation of the legs is wearing compression stockings. Given return precautions. Discharged home. Other additions or changes: [None] Discharge Plan Triage Chief Complaint: Edema ED Midlevel Provider: Omari Casiano ED Provider: Pat King Dx/Rx/DC Orders Clinical Impression: Leg edema Instructions: ED Peripheral Edema, Bilateral Prescriptions: No Action diclofenac sodium [Voltaren Arthritis Pain] 1 % gel 2 g topical ONCE Rx Instructions: apply to single elbow, wrist or hand; for hand includes palm/fingers/back of hand tramadol 50 mg tablet 50 mg PO BID PRN omeprazole 40 mg capsule,delayed release(DR/EC) 40 mg PO DAILY gabapentin 300 mg capsule 300 mg PO DAILY duloxetine [Cymbalta] 60 mg capsule,delayed release(DR/EC) 60 mg PO DAILY Qty: 90 1RF Rx Instructions: Take 1 60mg capsule in addition to 1 30mg capsule for a total of 90mg daily duloxetine 30 mg capsule,delayed release(DR/EC) 30 mg PO DAILY Qty: 90 1RF Rx Instructions: take 1 30mg capsule in addition to 1 60mg capsule for a total of 90mg dextroamphetamine-amphetamine 20 mg tablet 40 mg PO QDAY 30 Days Qty: 60 0RF dextroamphetamine-amphetamine 20 mg tablet 40 mg PO QDAY 30 Days Qty: 60 0RF lorazepam 1 mg tablet 2 mg PO QDAY PRN (Reason: anxiety) 30 Days Qty: 60 1RF cyanocobalamin (vitamin B-12) 1,000 mcg/mL solution 1,000 mcg IM QWEEK loperamide 2 mg Capsule 4 mg PO TID Qty: 100 0RF Rx Instructions: 2 tabs 3 times a day for the next 4 days, then reduce to 2 tabs twice a day x 4 days, then use 2 tabs 4 times a day as needed for loose stool ondansetron HCl 4 mg tablet 4 mg PO Q6H PRN (Reason: nausea and vomiting) Qty: 30 0RF celecoxib [Celebrex] 200 mg capsule 200 mg PO DAILY PRN (Reason: pain) Qty: 90 0RF levothyroxine 137 mcg tablet 137 mcg PO DAILY Qty: 90 0RF hydroxychloroquine [Plaquenil] 200 mg tablet 200 mg PO DAILY Qty: 90 0RF dextroamphetamine-amphetamine [Adderall] 20 mg tablet 40 mg PO DAILY 30 Days Qty: 60 0RF lorazepam 1 mg tablet 2 mg PO DAILY PRN (Reason: anxiety) Qty: 60 0RF Primary Care Provider: Alma Theodore Referrals: Jacques Curry [Registered Nurse] - Activity Restrictions/Additional Instructions: Please ensure that you try to elevate your legs above your heart multiple times a day, try NIEVES hose, return for any worsening symptoms. Print Language: Cymraes Disposition Disposition: Home, Self Care Discharge Date/Time: 01/09/24 19:47
[2024-01-09 17:54] VITALS: BP 120/70; PULSE 77; RESP 19; O2SAT 98
--- NOTE | 2024-01-09 18:00 | RAD_ITS ---
INDICATION: cough EXAMINATION/TECHNIQUE: X-RAY - XR Chest 2 Views COMPARISON: None. FINDINGS: LINES/DEVICES: None. LUNGS: No consolidation, edema or effusion. No pneumothorax. MEDIASTINUM AND CARDIOVASCULAR STRUCTURES: Cardiac silhouette not enlarged. Central airways and mediastinal contour are unremarkable. BONES AND SOFT TISSUES: Unremarkable. RAD/Chest PA and Lateral IMPRESSION: No radiographic evidence of acute cardiopulmonary disease. Electronically Signed: Jermain Strickland MD at 18:28 EDT ,
[2024-01-09 18:06] LABS: Absolute Neutrophil Count 3.5 X10^3/uL (2.0-7.7); Basophil# 0.02 X10^3/uL; Basophil% 0.3 % (0-1); Eosinophil# 0.11 X10^3/uL; Eosinophils% 1.9 % (0-5); Hematocrit 35.1 % (37-47); Lymphocyte % 25.9 % (19-41); Mean Corp Hgb Conc 31.3 g/dL (32-36); Mean Corpuscular Hgb 30.2 pg (27.0-32.0); Mean Corpuscular Volume 96.4 fL (81-99); Mean Platelet Vol. 9.8 fl (6.2-12.0); Monocyte# 0.53 X10^3/uL; Monocyte% 9.2 % (0-10); NRBC Flagged by Analyzer 0 % (0-5); Neutrophil # 3.54 X10^3/uL (2.7-7.7); Neutrophil % 61.1 % (47-70); Platelet Count 239 K/mm3 (150-450); RBC Distribution Width CV 13.8 % (11.6-14.6); RBC Distribution Width SD 47.5 fl (35.1-43.9); Red Blood Count 3.64 M/mm3 (4.2-5.4); White Blood Count 5.8 K/mm3 (4.4-11.0)
[2024-01-09 18:26] LABS: AST(SGOT) 15 U/L (15-37); Alanine Aminotransfer ALT/SGPT 27 U/L (13-56); Albumin, Serum 3.2 g/dL (3.2-5.0); Alkaline Phosphatase 69 U/L (45-117); Anion Gap 4 (5-15); BUN 8 mg/dL (7-18); BUN/Creat Ratio 8.7 RATIO (10-20); Bilirubin, Direct 0.13 mg/dL (0.00-0.30); Calcium,Total 8.8 mg/dL (8.5-10.1); Chloride 106 mmol/L (98-107); Creatinine, Serum 0.92 mg/dL (0.55-1.02); EST Glomerular Filtration Rate 67 mL/min (>60); Est Glom Filt Rate - Afr Amer 80 mL/min (>60); Estimated Creatinine Clearance 75.13 ml/min; Globulin 2.8 g/dL (2.2-4.2); Glucose 97 mg/dL (74-106); Magnesium 2.3 mg/dL (1.6-2.6); Potassium 3.8 mmol/L (3.5-5.1); Sodium Level 141 mmol/L (136-145)
[2024-01-09 18:36] LABS: BNP,B-Type NATRIURETIC PEPTIDE 32.1 pg/mL (0-100)
[2024-01-09 19:00] VITALS: BP 118/76; PULSE 81; RESP 16; O2SAT 92
[2024-01-09 19:43] VITALS: BP 119/90; PULSE 81; RESP 18; TEMP 35.7; O2SAT 97
[2024-01-09 19:45] VITALS: O2SAT 95
== END 2024-01-09 19:47 | disposition home or self-care (01) ==
PROVIDERS: Nurse Practitioner; Emergency Provider Emergency Medicine; PCP Internal Medicine; Referring Provider Emergency Medicine; Visit Provider Emergency Medicine
DX: R60.0 Localized edema (principal); Z98.84 Bariatric surgery status; K21.9 Gastro-esophageal reflux disease without esophagitis; E03.9 Hypothyroidism, unspecified; Z79.899 Other long term (current) drug therapy; R05.9 Cough, unspecified
CPT/HCPCS: 71046; 80048; 80053; 80076; 83605; 83735; 83880; 85025; 85610; 86140; 99285; A4216

== ENCOUNTER → 2024-06-17 | Outpatient (CLI) | payer MEDICARE, SELFPAY ==
--- NOTE | 2024-06-17 15:01 | RAD_ITS ---
PROCEDURE: WRIST MIN 3 VIEWS REASON FOR EXAM: Wrist pain. Remote fracture. TECHNIQUE: Three-view right wrist series COMPARISON: None. RAD/Wrist min 3 Views IMPRESSION: Marked deformity of the proximal scaphoid bone is seen, likely due to remote fr acture and osteonecrosis. Moderate degenerative changes are seen at the articulation between the distal r adius in the remaining portion of the distal scaphoid. [id number] degenerative changes are seen at the scaphoid trapezial trapez oidal and 1st carpal-metacarpal joints. Mild degenerative changes are seen elsewhere in the carpus. No significant degree of ulnar variance is seen. No acute fracture site is evident. Dorsal intercalated segmental instability (DISI) is also seen. Reading Location: [id number]
[2024-06-17 15:29] LABS: Absolute Lymphocyte Count 1.47 X10^3/uL (0.83-4.51); Absolute Neutrophil Count 4.6 X10^3/uL (2.0-7.7); Basophil# 0.02 X10^3/uL; Basophil% 0.3 % (0-1); Eosinophil# 0.04 X10^3/uL; Eosinophils% 0.6 % (0-5); Hematocrit 35.6 % (37-47); Hemoglobin 11.3 g/dL (12.0-15.0); Lymphocyte # 1.47 X10^3/ul (0.83-4.51); Lymphocyte % 22.5 % (19-41); Mean Corp Hgb Conc 31.7 g/dL (32-36); Mean Corpuscular Hgb 29.8 pg (27.0-32.0); Mean Corpuscular Volume 93.9 fL (81-99); Mean Platelet Vol. 10.7 fl (6.2-12.0); Monocyte# 0.42 X10^3/uL; Monocyte% 6.4 % (0-10); NRBC Flagged by Analyzer 0 % (0-5); Neutrophil # 4.56 X10^3/uL (2.7-7.7); Neutrophil % 69.7 % (47-70); Platelet Count 238 K/mm3 (150-450); RBC Distribution Width CV 13.2 % (11.6-14.6); RBC Distribution Width SD 45.3 fl (35.1-43.9); Red Blood Count 3.79 M/mm3 (4.2-5.4); White Blood Count 6.5 K/mm3 (4.4-11.0)
== END | disposition home or self-care (01) ==
PROVIDERS: PCP Internal Medicine; Referring Provider Internal Medicine; Visit Provider Internal Medicine
DX: M25.531 Pain in right wrist (principal); E03.9 Hypothyroidism, unspecified
CPT/HCPCS: 36415; 73110; 84443; 85025

== ENCOUNTER → 2024-07-06 | Outpatient (CLI) | payer MEDICARE, SELFPAY ==
--- NOTE | 2024-07-06 15:00 | BI_ITS ---
PROCEDURE: SCRN MAMM (CAD)W/RAMESH BILAT REASON FOR EXAM: F, Age 59 y/o, aunt with breast cancer. Routine mammographic follow-up. TECHNIQUE: Bilateral screening digital breast tomosynthesis with 2D and 3D images. Computer aided detection. COMPARISON: Prior exam(s) dating back to January 23, 2023.. FINDINGS: The breasts are almost entirely fatty. Stable examination. No suspicious masses, areas of developing architectural distortion, or suspicious calcifications. BI/SCRN MAMM (CAD)W/RAMESH BILAT IMPRESSION: BI-RADS 1: NEGATIVE. RECOMMEND ANNUAL MAMMOGRAPHIC SCREENING. Follow-up code: Routine Follow-up The patient will be notified of the results by letter. Reading Location: [id number]
== END | disposition home or self-care (01) ==
LOC: OPBI 14:58
PROVIDERS: PCP Internal Medicine; Referring Provider Internal Medicine; Visit Provider Internal Medicine
DX: Z12.31 Encounter for screening mammogram for malignant neoplasm of breast (principal); Z80.3 Family history of malignant neoplasm of breast
CPT/HCPCS: 77063; 77067

== ENCOUNTER → 2025-01-05 | Outpatient (CLI) | payer MEDICARE, SELFPAY ==
[2025-01-05 18:15] LABS: Hematocrit 34.1 % (37-47); Hemoglobin 11.1 g/dL (12.0-15.0); Immature Granulocytes Count 0.010 X10^3/uL (0.0-0.0); Mean Corp Hgb Conc 32.6 g/dL (32-36); Mean Corpuscular Volume 92.7 fL (81-99); Mean Platelet Vol. 10.6 fl (6.2-12.0); NRBC Flagged by Analyzer 0 % (0-5); Platelet Count 200 K/mm3 (150-450); RBC Distribution Width CV 13.6 % (11.6-14.6); RBC Distribution Width SD 46.1 fl (35.1-43.9); Red Blood Count 3.68 M/mm3 (4.2-5.4); White Blood Count 3.9 K/mm3 (4.4-11.0)
[2025-01-05 18:37] LABS: AST(SGOT) 35 U/L (<=31); Alanine Aminotransfer ALT/SGPT 20 U/L (<=34); Albumin, Serum 4.4 g/dL (3.4-4.8); Alkaline Phosphatase 67 U/L (35-104); Anion Gap 12 (5-15); BUN 12 mg/dL (4-19); BUN/Creat Ratio 11.8 RATIO (10-20); Calcium,Total 9.3 mg/dL (7.6-11.0); Carbon Dioxide 23.1 mmol/L (21.0-32.0); Chloride 104 mmol/L (98-108); Cholesterol 233 mg/dL (<=200); Globulin 2.5 g/dL (2.2-4.2); Glucose 99 mg/dL (70-99); Low Density Lipoprotein Calc. 136 mg/dL; Potassium 3.5 mmol/L (3.3-5.1); Triglycerides 55 mg/dL; Very Low Density Lipoprotein 11 mg/dL (5-40); Vitamin D,25 Hydroxy 41.7 ng/mL (30-100); cholesterol:hdl ratio screen 2.71
[2025-01-07 04:07] LABS: PROGESTERONE <0.1 ng/mL (.)
[2025-01-09 16:08] LABS: Estrogen, Total, Serum 51 pg/mL (40-244)
== END | disposition home or self-care (01) ==
LOC: MTLAB 16:25
PROVIDERS: PCP Internal Medicine; Referring Provider Physician Assistant; Visit Provider Physician Assistant
DX: E03.9 Hypothyroidism, unspecified (principal); E55.9 Vitamin D deficiency, unspecified; R23.2 Flushing; E66.9 Obesity, unspecified
CPT/HCPCS: 36415; 80053; 80061; 82306; 82672; 84144; 84443; 85025

== ENCOUNTER → 2025-02-11 | Outpatient (CLI) | payer MEDICARE, SELFPAY ==
[2025-02-11 15:59] LABS: Free T3 1.7 pg/mL (2.18-3.98)
== END | disposition home or self-care (01) ==
LOC: MTLAB 11:22
PROVIDERS: PCP Internal Medicine; Referring Provider Nurse Practitioner Family; Visit Provider Nurse Practitioner Family
DX: I49.9 Cardiac arrhythmia, unspecified (principal); E03.9 Hypothyroidism, unspecified
CPT/HCPCS: 36415; 84439; 84443; 84481; 86376; 86800

== ENCOUNTER → 2025-03-25 | Outpatient (CLI) | payer MEDICARE, SELFPAY | END | disposition home or self-care (01) | LOC: MTLAB 16:15 | PROVIDERS: Nurse Practitioner Family; PCP Internal Medicine; Referring Provider Internal Medicine; Visit Provider Internal Medicine | DX: E03.9 Hypothyroidism, unspecified (principal) | CPT/HCPCS: 36415; 84443 ==